=== PATIENT | male | born 1960 | race Caucasian/White ===

== ENCOUNTER → 2023-05-16 15:37 | Outpatient (REF) | payer BC, SELFPAY | LOC: RAD 15:37 | PROVIDERS: ATTENDING PHYSICIAN Surgery; FAMILY PHYSICIAN Internal Medicine | DX: K43.2 Incisional hernia without obstruction or gangrene (principal) | CPT/HCPCS: 74177; Q9967 ==

== ENCOUNTER 2023-05-30 06:26 | Day surgery (SDC) | payer BC, SELFPAY ==
[2023-05-30 13:10] VITALS: BP 145/100
[2023-05-30 13:13] VITALS: BMI 26.8
[2023-05-30 13:14] VITALS: BMI 26.8
[2023-05-30 15:11] VITALS: BP 148/88
[2023-05-30 15:15] VITALS: BP 133/97
[2023-05-30 15:30] VITALS: BP 145/101
[2023-05-30 15:41] VITALS: BP 145/96
== END 2023-05-30 16:05 | disposition home or self-care (01) ==
LOC: SDS 06:26
PROVIDERS: ATTENDING PHYSICIAN Internal Medicine Gastroenterology
DX: K56.699 Other intestinal obstruction unspecified as to partial versus complete obstruction (principal); K57.30 Diverticulosis of large intestine without perforation or abscess without bleeding; K64.9 Unspecified hemorrhoids; K59.00 Constipation, unspecified
CPT/HCPCS: 45340

== ENCOUNTER 2023-06-11 06:18 | Day surgery (SDC) | payer BC, SELFPAY ==
--- NOTE | 2023-05-27 12:22 | CM ---
Patient is scheduled for a Robotic incisional hernia repair on 06/11/23. Spoke with patient prior to surgery via telephone to complete case management assessment and assess for discharge planning needs. Patient reports that he lives with his in
a split level home. There are three steps to enter. Once inside he has a first floor set up with two steps into the bedroom. He currently functions independently. He does not use any DME. He has had [facility] services through [facility]. He has prescription
drug coverage and uses [facility] in [place].
PCP is Morgan Ying
Discussed discharge plans. Patient plans to return home at discharge. He states that he will have support from his when he goes home. He has no discharge planning concerns at this time. He does not identify any discharge planning needs but
states that if he needs VN services he selects [facility]N.
[2023-06-06 09:15] LABS: Hemoglobin 16.2 g/dL (13.0-18.0); Mean Corp Hgb Conc. 33.8 g/dL (33.0-37.0); Mean Corpuscular Hgb 30.5 pg (27.0-31.0); Mean Corpuscular Volume 90.2 fL (80.0-94.0); Mean Platelet Volume 10.8 fL (7.4-10.4); Platelet Count 252 10^3/uL (130-400); Red Blood Cell Count 5.32 10^6/uL (4.70-6.10); Red Cell Dist. Width 13.2 % (11.5-14.5); White Blood Cell Count 7.2 10^3/uL (4.8-10.8)
[2023-06-06 09:48] VITALS: BMI 27.2
[2023-06-06 09:54] LABS: Blood Urea Nitrogen 23 mg/dl (9-20); Carbon Dioxide 27 mmol/L (22-30); Chloride 103 mmol/L (98-107); Estimated Creatinine Clearance 69 ml/min; Glucose 108 mg/dl (70-99); Potassium 4.8 mmol/L (3.5-5.1); Sodium 140 mmol/L (135-145); eGFR > 60.00
--- NOTE | 2023-06-06 16:21 | PTCARENOTE ---
Abnormal EKG ok if stable per Dr Shin.
[2023-06-11] VITALS (12 sets, daily range): BP systolic 115–153; BP diastolic 72–96; BMI 27.2
[2023-06-11] MEDS: TYLENOL 1000 MG PO (11:44)
[2023-06-11] MEDS: NORMOSOL-R 1000 IV (11:50)
[2023-06-11] MEDS: SUBLIMAZE 50 MCG IV ×2 (14:58→15:12)
[2023-06-11] MEDS: ZOFRAN 4 MG IV (15:20)
== END 2023-06-11 17:25 | disposition home or self-care (01) ==
LOC: SDS 06:18
PROVIDERS: ATTENDING PHYSICIAN Surgery; FAMILY PHYSICIAN Internal Medicine; OTHER PHYSICIAN Surgery
DX: K43.2 Incisional hernia without obstruction or gangrene (principal)
CPT/HCPCS: 49593; 36415; 80048; 85027; 93005; C1781

== ENCOUNTER 2023-07-29 20:03 | Inpatient (IN) | payer BC, SELFPAY ==
[2023-07-29 16:55] VITALS: BP 172/111
[2023-07-29 17:11] VITALS: BP 114/72
--- NOTE | 2023-07-29 17:19 | ED.GENMED ---
History of Present Illness
General
Chief Complaint: Abdominal Pain
Time Seen by Provider: 07/29/23 17:18
Travel History
Have you had any contact with someone who has COVID-19?: No
Do you have any symptoms of coronavirus? Fever > 100 degrees, chills, cough, shortness of breath, sore throat, loss of taste or smell, muscle aches, or headache?: No
History of Present Illness
History of Present Illness:
HPI: The patient has a history of sigmoidectomy with proximal diverting loop ileostomy for a large bowel resection in [place]. in June 2022, the patient had loop ileostomy takedown with partial small bowel resection. He comes in because of
abdominal cramping and he feels that there is something wrong with his intestines as he has had similar kind of pain in the past when he had an obstruction.
EXAM:
GENERAL: Well appearing in mild distress
HEENT: Moist oral mucosa
CARDIOVASCULAR: No murmurs, borderline tachycardia heart rate, regular rhythm, No chest wall tenderness
PULMONARY: No respiratory distress, breath sounds are clear and equal
ABDOMEN: Soft with borderline peritoneal signs, mild to moderate diffuse tenderness
NEUROLOGIC: Excellent strength all extremities, no coordination deficits
PSYCHIATRIC: Appropriate mental status, normal insight and judgement, appears somewhat anxious
EXTREMITIES: Nontender, no edema, moves all extremities equally
SKIN: No rash, no lesions
TIME OF INITIAL ENCOUNTER: 5:30 PM
NUMBER AND COMPLEXITY OF PROBLEMS ADDRESSED AT THE ENCOUNTER
� Chronic conditions affecting care: Has had ileostomy, bowel obstruction, bowel resection
� Acute Exacerbation and/or Progression of Chronic Illness: This is an acute problem
� Differential Diagnosis includes: Bowel obstruction, anastomosis complication, viral syndrome, mesenteric adenitis, epiploic appendagitis,
AMOUNT AND/OR COMPLEXITY OF DATA TO BE REVIEWED AND ANALYZED
� I performed an independent evaluation of and my interpretation is:
EKG:
CT: I personally viewed CT imaging of the abdomen pelvis with rectal contrast and I also reviewed the notes from radiology
X-rays:
Laboratory Studies: White count is 11.0, hemoglobin is 15.8, lactic is 2.2., 1+ ketones noted
Other:
� Review of other/old records: I reviewed records, the patient had robotic ventral incisional hernia repair with mesh by Dr. Feng in May 2023
� Clinical information was obtained by an independent historian: I spoke to the daughter at bedside
� Prescriptions/Medications Considered but not given:
� Further testing considered but not performed:
RISK OF COMPLICATIONS AND/OR MORBIDITY OR MORTALITY OF PATIENT MANAGEMENT
� Social determinants of health affecting care:
� Discussion with other providers: Discussed with Dr. Liu and I also discussed with Dr. Yi who is planning to take the OR; hospitalist Dr. Gastelum for admission
� Escalation of care including admission/observation vs risk of discharge considered: The patient's white count is borderline elevated 11.0, lactic is 2.2, ketonuria noted on urinalysis. Based on the abnormal CT, I have ordered
additional fluids and Zosyn. Dr. Yi planning OR later tonight with hospitalist admission.
Past History
Past History
ED Past Medical History: Other (gouy)
Social History
Alcohol: None
Personal:
Living: with family
Employment: Employed
Phy Exam
Physical Exam
Physical Exam:
See HPI
Course
Orders/Labs/Results
Orders:
Orders
07/29/23 17:19
0.9% Sodium Chloride 1000 ml [Nss] 1,000 ml IV BOLUS
07/29/23 17:23
Complete Blood Count/With Diff Urgent
Comprehensive Metabolic Panel Urgent
Lactic Acid Q4H
Comment: CANCEL 2nd LACTIC ACID IF 1st LACTIC ACID IS LESS THAN 2
Blood Culture Q30M
KISHA Source: Blood/Venous
Specimen Description:
Blood Culture Q30M
KISHA Source: Blood/Venous
Specimen Description:
07/29/23 17:45
HYDROmorphone [Dilaudid] 0.5 mg IV NOW STA
07/29/23 17:59
CT Abd/pelvis W Iv Cont Urgent
Reason For Exam: abd pain rectal contrast per Kassidy
07/29/23 18:44
Piperacillin/Tazo 3.375 Gram [Zosyn] 3.375 gram in 50 ml IV NOW
07/29/23 18:58
Urinalysis Reflex To Culture Urgent
Date Specimen was Collected: 07/29/23
Time Specimen was Collected: 18:54
07/29/23 21:30
Lactic Acid Q4H
Comment: CANCEL 2nd LACTIC ACID IF 1st LACTIC ACID IS LESS THAN 2
Abnormal Lab Results
07/29/23 07/29/23
17:23 18:58
WBC 11.0 H 10^3/uL
(4.8-10.8)
Absolute Neuts (auto) 9.1 H 10^3/uL
(1.4-6.5)
Absolute Lymphs (auto) 1.1 L 10^3/uL
(1.2-3.4)
Neutrophils % 82.9 H %
(42.2-75.2)
Lymphocytes % 10.3 L %
(20.5-51.1)
Glucose 110 H mg/dl
(70-99)
Lactic Acid 2.2 H mmol/L
(0.7-2.0)
Urine Ketones 1+ A
(Negative)
07/29/23 17:23
07/29/23 17:23
Vital Signs
Initial and Last Documented VS:
Initial Vital Signs
Temp Pulse Resp BP Pulse Ox
98.7 F 101 18 172/111 98
07/29/23 16:55 07/29/23 16:55 07/29/23 16:55 07/29/23 16:55 07/29/23 16:55
Last Documented Vital Signs
Temp Pulse Resp BP Pulse Ox
98.7 F 105 22 152/100 98
07/29/23 16:55 07/29/23 19:15 07/29/23 19:15 07/29/23 19:00 07/29/23 16:55
*Critical Care Note
Total Time (30-74mins, 75-104mins- exclusive of procedures): Not Applicable
ED Attending Note
-
Portions of this chart may have been created with voice recognition software.� Occasional wrong word or��sound alike� substitutions may have occurred due to the inherent limitations of voice recognition software.
Discharge Plan
Departure
Patient Disposition: Admit
Date of Disposition: 07/29/23
Time of Disposition: 18:47
Presentation/result/management discussed w/ accepting MD/DO: Hospitalist
Discharge Problem:
Anastomotic leak of intestine
Prescriptions:
No Action
ibuprofen 200 mg tablet
400 mg PO Q6HPRN PRN (Reason: mild pain)
Referrals:
UNKNOWN - PT DOES,NOT KNOW [Unknown Provider] -
Interventions
Interventions:
*Risk Screen - Suicide Last Done: 07/29/23 16:55
*General Assessment Last Done: 07/29/23 16:55
*Neglect/Abuse Screening Last Done: 07/29/23 16:55
ED- Fall Risk Assessment Last Done: 07/29/23 17:28
*ED COVID-19 Vaccine History Last Done: 07/29/23 17:03
QO-Ualfdf-Ptklutmlpo Assessment Last Done: 07/29/23 17:26
Discharge Date and Time
Print Language: IRISH
[2023-07-29] MEDS: NSS 1000 IV ×2 (17:25→19:40)
[2023-07-29 17:26] VITALS: BMI 28.6
[2023-07-29 17:30] LABS: % Basophils 0.3 % (0-2); % Eosinophils 0.5 % (0-6); % Immature Granulocytes 0.4 % (0-0.5); % Lymphocytes 10.3 % (20.5-51.1); % Monocytes 5.6 % (1.7-9.3); % Neutrophils 82.9 % (42.2-75.2); Absolute Eosinophils 0.1 10^3/uL (0-0.7); Absolute Lymphocytes 1.1 10^3/uL (1.2-3.4); Absolute Monocytes 0.6 10^3/uL (0.1-0.6); Absolute Neutrophils 9.1 10^3/uL (1.4-6.5); Hematocrit 44.7 % (39.0-52.0); Hemoglobin 15.8 g/dL (13.0-18.0); Mean Corp Hgb Conc. 35.3 g/dL (33.0-37.0); Mean Corpuscular Hgb 30.5 pg (27.0-31.0); Mean Corpuscular Volume 86.3 fL (80.0-94.0); Mean Platelet Volume 10.3 fL (7.4-10.4); Nucleated Red Blood Cells % 0 % (-); Platelet Count 242 10^3/uL (130-400); Red Blood Cell Count 5.18 10^6/uL (4.70-6.10); Red Cell Dist. Width 12.9 % (11.5-14.5)
[2023-07-29 17:42] LABS: ALT (SGPT) 48 U/L (0-50); AST (SGOT) 34 U/L (17-59); Albumin 4.7 g/dl (3.5-5.0); Alkaline Phosphatase 72 U/L (38-126); Blood Urea Nitrogen 20 mg/dl (9-20); Calcium 9.9 mg/dl (8.4-10.2); Carbon Dioxide 26 mmol/L (22-30); Chloride 101 mmol/L (98-107); Estimated Creatinine Clearance 76 ml/min; Glucose 110 mg/dl (70-99); Potassium 3.7 mmol/L (3.5-5.1); Sodium 139 mmol/L (135-145); eGFR > 60.00
[2023-07-29 17:43] LABS: Lactic Acid 2.2 mmol/L (0.7-2.0)
[2023-07-29] MEDS: DILAUDID 0.5 MG IV (17:49)
[2023-07-29 18:40] VITALS: BP 181/96
[2023-07-29] MEDS: ZOSYN 50 IV (18:46)
[2023-07-29 19:00] VITALS: BP 152/100
--- NOTE | 2023-07-29 19:11 | HPS.HSE ---
Addendum entered and electronically signed by Mally Gastelum MD 07/29/23 19:47:
see my update note for addendum
Original Note:
Family Physician
-
Family Physician: Morgan Ying
Chief Complaint
-
abdominal pain
History of Present Illness
63-year-old with no significant past medical history presented to us with generalized abdominal pain since this morning. Back in 2021 patient had a same abdominal pain. Patient underwent large bowel resection with ileostomy which was reversed in
December 2022. Denied nausea vomiting diarrhea. He gets constipated at times. He moved his bowel movement today. Patient denied headache. He complained of dizziness, denies syncopal episode. Patient denied fever, chills, chest pain, short of
breath. Patient denied dysuria, hematuria.
CT obtained with anastomotic leak in the sigmoid colon. Plan for surgery tonight admitting for further management.
Medical History
Past Medical History
Past Medical History: Reports None
Past Surgical History: Reports Other
Additional Past Surgical History:
Large bowel resection with loop ileostomy
-Reversal of ileostomy
Hernia surgery
Social History
Tobacco: Non-smoker
Alcohol: None
Drug: None
Personal:
Living: With Family
Family History
Family History: Not pertinent
Allergies / Home Medications
Allergies reflects when Allergies were last updated in [facility].
Home Medications with original date entered in [facility]
Allergy/Medication List:
Allergies
Allergy/AdvReac Type Severity Reaction Status Date / Time
No Known Allergies Allergy Verified 07/29/23 17:00
Home Medications
ibuprofen 200 mg tablet 400 mg PO Q6HPRN PRN mild pain 07/29/23
Review of Systems
-
Constitutional: Reports No Symptoms
EENT: Reports No Symptoms
Respiratory: Reports No Symptoms
Cardiac: Reports No Symptoms
Abdomen/GI: Reports No Symptoms and Abdominal Pain
: Reports No Symptoms
Musculoskeletal: Reports No Symptoms
Skin: Reports No Symptoms
Neurological: Reports No Symptoms
Endocrine: Reports No Symptoms
Hematologic/Lymphatic: Reports No Symptoms
Psych: Reports No Symptoms
Physical Exam
Vital Signs
Vital Signs
Temp Pulse Resp BP Pulse Ox
98.7 F 99 32 152/100 98
07/29/23 16:55 07/29/23 19:00 07/29/23 19:00 07/29/23 19:00 07/29/23 16:55
Physical Exam
General: Well Developed, Well Nourished and No Apparent Distress
HEENT: NormoCephalic, Moist mucous membranes and Atraumatic
Respiratory: Clear
Cardiac: S1/S2 and Regular Rhythm; No Murmur or Rub
GI: Soft, Non Tender, Non Distended, Normal Bowel Sounds and Tender; No Organomegaly
Rectal: Deferred by Provider
Musculoskeletal: No Clubbing, No Cyanosis and No Edema
Skin: No Rash
Neuro: AO x 3 and Nonfocal/grossly intact
Psych: Calm
Laboratory Results
-
07/29/23 17:23
07/29/23 17:23
Laboratory Results
Lactic Acid 2.2 mmol/L (0.7-2.0) H 07/29/23 17:23
Total Bilirubin 1.0 mg/dl (0.2-1.3) 07/29/23 17:23
AST 34 U/L (17-59) 07/29/23 17:23
ALT 48 U/L (0-50) 07/29/23 17:23
Alkaline Phosphatase 72 U/L (38-126) 07/29/23 17:23
Data Reviewed
-
CT Scan: Report Reviewed by me
Lab Data: Labs Reviewed by me
Impression/Plan
-
#abdominal cramping likely from anastomotic leak in the sigmoid colon/reactive enteritis/ileus
#hxt of loop ileostomy with large bowel resection
#hxt of ileostomy reversal
-Maintain n.p.o.
-Plan for OR tonight
-Surgery following
-Fluids continued for hydration
#hxt of recent hernia repair
# DVT prophylaxis
-SCD
# CODE STATUS
-Full code
[2023-07-29 19:13] LABS: Urine Albumin Negative (Neg - Trace); Urine Bilirubin Negative (Negative); Urine Character Clear (Clear); Urine Color Yellow; Urine Glucose Negative (Negative); Urine Ketone 1+ (Negative); Urine Leukocyte Negative (Negative); Urine Nitrite Negative (Negative); Urine Occult Blood Negative (Negative); Urine Urobilinogen Negative (Neg - 1+)
--- NOTE | 2023-07-29 19:47 | W.PN.UPDATE ---
Update Note
Progress Note Update
I saw and examined the patient.
The BAG WORKER Anselmo's note was reviewed and I agree with the note.
Comment: 63 y/o M presenting to ER with abdominal pain, generalized and intense. Onset this morning. Pain is progressive.Denies nausea/vomiting, chest or sob. No other complaints. He had similar pain in 2021 and required a large bowel resection with
ostomy (since reversed in Dec 2022).
Urgent CT in ER showing anastomotic leak in the sigmoid colon; ER and I spoke to Dr. Yi and plan is for OR urgently.
Plan: NPO, IVF, pain control, anti-emetics. Mild lactic acidosis, repeat pending. IV Zosyn to continue. Follow cultures. Colorectal consulted for urgent surgery tonight; with probable ICU admission to follow.
Physical Exam
General: Well Developed, Well Nourished and No Apparent Distress
HEENT: Normocephalic, Moist mucous membranes and Atraumatic
Respiratory: Clear
Cardiac: S1/S2 and tachycardia; No Murmur or Rub
GI: Rigid, tender diffusely to mild palpation. No obvious masses.
Rectal: Deferred by Provider
Musculoskeletal: No Clubbing, No Cyanosis and No Edema
Skin: No Rash
Neuro: AO x 3 and Nonfocal/grossly intact
Psych: Calm
[2023-07-29] MEDS: DILAUDID 1 MG IV (19:58)
[2023-07-29 20:00] VITALS: BP 152/99
--- NOTE | 2023-07-29 20:28 | CON.MD ---
Consultation - Medical
-
Full consult to be dictated.
History, vitals, labs, imaging reviewed. Patient seen and examined.
63-year-old male well-known to me with apparent anastomotic leak of old sigmoid anastomosis with known stricture with resultant signs of sepsis and peritonitis. This is confirmed on CT with rectal contrast performed today in the ER which reveals
extravasation of rectal contrast at the old anastomosis as well as free air. He is mildly tachycardic and has mild leukocytosis with a left shift. Lactate is mildly elevated at 2.2. Historically, he underwent a urgent sigmoidectomy with
anastomosis and proximal diverting loop ileostomy in [place] in 2021 for sigmoid diverticular stricture. He saw me locally for consideration of ileostomy takedown. 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
by Dr. Uli Randall of GI followed by ileostomy reversal by me in December 2022. He has had recurrent known stricture which was dilated again by Dr. Randall 2 months ago on 05/30/2023. Even more recently on 06/11/2023 he underwent a right-sided incisional
hernia repair with mesh by Dr. Feng of general surgery. I discussed the situation with the patient and his at the bedside. I recommended exploratory laparotomy with likely resection of the old anastomosis and palpable colostomy creation.
Details of operation planned as well as risk and benefits discussed. Risk touched on included but not limited to bleeding, infection, anastomotic leak) if created), rectal stump dehiscence, ureteral injury, bowel or solid organ injury, mesh
infection, and anesthetic risk. The patient understood and agreed to proceed.
--- NOTE | 2023-07-29 23:54 | W.IMMPOSTOP ---
Surgical Immed Post Op Note
-
Primary Surgeon: Louisa Yi MD
Assisting Surgeon: none
Pre-op Diagnosis: anastomotic leak
Post-op Diagnosis: same
Procedure Performed: 1) exploratory laparotomy 2) partial colectomy (resection of old sigmoid anastomosis) 3) colostomy
Anesthesia Type: general plus TAP block
Specimen / Cultures: 1) abdominal fluid cultures 2) portion of colon to include old sigmoid anastomosis
Estimated Blood Loss: 100 cc
Complications: no immediate
Operative Findings: 1) anastomotic leak of old sigmoid anastomosis at upper pelvis with associated purulent contamination and exudate 2) secondary involvement of tongue of omentum and loop of small bowel 3) abdominal wall mesh partially divided on
entry
#19 Esa in pelvis.
NGT in stomach--confirmed in OR.
Guerrero in bladder.
Sending to ICU for close monitoring.
Patient's updated in waiting area.
[2023-07-30] VITALS (19 sets, daily range): BP systolic 102–137; BP diastolic 67–90; PULSE 68; O2SAT 94; BMI 28.1; BMI 28.0; BMI 27.9
[2023-07-30] MEDS: ZOSYN 50 IV ×4 (00:40→17:27)
[2023-07-30] MEDS: TORADOL 15 MG IV ×4 (00:41→18:17)
[2023-07-30] MEDS: NORMOSOL-R 1000 IV ×2 (00:41→08:00)
[2023-07-30 00:57] LABS: Hematocrit 41.3 % (39.0-52.0); Hemoglobin 14.7 g/dL (13.0-18.0); Mean Corp Hgb Conc. 35.6 g/dL (33.0-37.0); Mean Corpuscular Hgb 30.8 pg (27.0-31.0); Mean Corpuscular Volume 86.6 fL (80.0-94.0); Mean Platelet Volume 10.1 fL (7.4-10.4); Nucleated Red Blood Cells % 0 % (-); Platelet Count 195 10^3/uL (130-400); Red Blood Cell Count 4.77 10^6/uL (4.70-6.10); White Blood Cell Count 8.9 10^3/uL (4.8-10.8)
[2023-07-30 02:57] LABS: Blood Urea Nitrogen 17 mg/dl (9-20); Calcium 7.7 mg/dl (8.4-10.2); Carbon Dioxide 17 mmol/L (22-30); Chloride 107 mmol/L (98-107); Estimated Creatinine Clearance 83 ml/min; Glucose 144 mg/dl (70-99); Magnesium 1.5 mg/dl (1.6-2.3); Potassium 4.3 mmol/L (3.5-5.1); Sodium 136 mmol/L (135-145); eGFR > 60.00
[2023-07-30 03:01] LABS: Lactic Acid 2.8 mmol/L (0.7-2.0)
[2023-07-30] MEDS: OFIRMEV 100 IV ×4 (03:48→20:43)
[2023-07-30 04:04] LABS: Absolute Neutrophils -Man Diff 7.2 10^3/uL (1.4-6.5); Atypical Lymphocytes 2 %; Band Neutrophils 41 % (0-3); Lymphocytes 8 % (20-51); Metamyelocytes 3 % (-); Monocytes 6 % (2-9); Segmented Neutrophils 40 % (42-75)
[2023-07-30 04:05] LABS: Normal RBC Morphology Yes; Platelets Checked Yes
[2023-07-30 04:22] LABS: Total Cells Counted 100
[2023-07-30] MEDS: MAGNESIUM SULFATE 50 IV (05:13)
[2023-07-30 05:18] LABS: APTT 29.5 Sec (23.4-35.0); INR 1.25; PT 15.6 Sec (11.4-14.6)
[2023-07-30 05:21] LABS: Hematocrit 40.6 % (39.0-52.0); Hemoglobin 14.4 g/dL (13.0-18.0); Mean Corp Hgb Conc. 35.5 g/dL (33.0-37.0); Mean Corpuscular Hgb 30.8 pg (27.0-31.0); Mean Corpuscular Volume 86.9 fL (80.0-94.0); Mean Platelet Volume 10.4 fL (7.4-10.4); Platelet Count 201 10^3/uL (130-400); Red Blood Cell Count 4.67 10^6/uL (4.70-6.10); White Blood Cell Count 10.8 10^3/uL (4.8-10.8)
[2023-07-30 05:27] LABS: Blood Urea Nitrogen 17 mg/dl (9-20); Calcium 7.7 mg/dl (8.4-10.2); Carbon Dioxide 19 mmol/L (22-30); Chloride 107 mmol/L (98-107); Estimated Creatinine Clearance 83 ml/min; Glucose 159 mg/dl (70-99); Magnesium 1.6 mg/dl (1.6-2.3); Potassium 4.2 mmol/L (3.5-5.1); Sodium 135 mmol/L (135-145); eGFR > 60.00
[2023-07-30 05:28] LABS: Lactic Acid 2.4 mmol/L (0.7-2.0)
--- NOTE | 2023-07-30 07:40 | CON.INTV ---
Consultation
Consultation Request
Date/Time Consultation Requested: 07-30-23
Date/Time Consultation Performed: 07-30-23
Requesting Provider: Hospitalist Ori
Performing Provider: Dr Srivastava
Reason for Consultation: acute abdomen
Medical History
-
Chief Complaint: abd pain
History of Present Illness:
Mr Neo Mandel is a 63/M adm 07-28 with acute abd pain.
Known h/o previous sigmoid diverticular stricture requiring surgery in 2021 and Dec 2022.
Known to ZOË Rubio. Imaging studies showed anastomotic leak of old sigmoid anastomosis, taken to OR upon adm, received expl lap, partial colectomy with colostomy.
Seen at ICU, has remained hemodyn and resp cottrell stable since adm, reports mild postop incisional pain
Past Medical History
Past Medical History: Other (see A&P for PMH/PSH)
Social History
Tobacco: Non-smoker
Alcohol: None
Drug: None
Personal:
Living: With Family
Employment: Employed
Family History
Family History: Reviewed & Not Pertinent
Allergies / Home Medications
Allergies
Allergy/AdvReac Type Severity Reaction Status Date / Time
No Known Allergies Allergy Verified 07/29/23 17:00
Home Medications
�Medication �Instructions �Recorded �Confirmed �Last Taken �Type
ibuprofen 200 mg tablet 400 mg PO Q6HPRN PRN mild pain 07/29/23 07/29/23 Unknown History
Review of Systems
-
History Source: Patient
All other systems: Negative unless noted
Constitutional: Fatigue
Abdomen/GI: Abdominal Pain (incisional)
Vitals / Labs / Diagnostic Testing
Vital Signs
Temp Pulse Resp BP Pulse Ox
98 F 65 14 115/84 97
07/30/23 07:29 07/30/23 06:30 07/30/23 06:30 07/30/23 06:00 07/30/23 07:34
Lab Data
07/30/23 04:57
07/30/23 04:57
Laboratory Results
07/30/23
04:57
PT 15.6 H
INR 1.25
APTT 29.5
Diagnostic Testing:
Physical Exam
-
HEENT: Normocephalic and Moist Mucous Membranes
Cardiovascular: Regular Rhythm, Murmur (n), Peripheral Edema and JVD (n)
Respiratory: Clear and Non-Labored Respirations
GI: Soft, Non Distended and Tender (mild incisional pain)
Neurology: Awake, AO x 3 and No Motor Deficits
Skin: Warm
General: Comfortable
Assessment
-
Assessment:
Mr Neo Mandel is a 63/M adm 07-28 with acute abd pain. Known h/o previous sigmoid diverticular stricture requiring surgery in 2021 and Dec 2022. Know to [place] [facility]. Imaging studies showed anastomotic leak of old sigmoid anastomosis, taken to OR
upon adm, received expl lap, partial colectomy with colostomy. Seen at ICU, has remained hemodyn and resp cottrell stable since adm, reports mild postop incisional pain
Impression:
Acute abdomen: peritonitis
Anastomotic leak of old sigmoid anastomosis at upper pelvis with associated purulent contamination and exudate
Secondary involvement of tongue of omentum and loop of small bowel
S/p exploratory laparotomy, partial colectomy (resection of old sigmoid anastomosis), colostomy
Conditions MANAGED CARE NURSE:
Sigmoid diverticular stricture: s/p sigmoidectomy with anastomosis and proximal diverting loop ileostomy in [place] in 2021. 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
preoperative dilation by Analilia OJEDA, followed by ileostomy reversal by Dr Yi in December 2022. He has had recurrent known stricture which was dilated again by Dr. Randall in 05/30/2023. On 06/11/2023 he underwent a right-sided incisional hernia repair
with mesh by Dr. Feng
Nonsmoker
Plan:
Adm to ICU after abd surgery: acute abd, peritonitis from anastomotic leak from old sigmoid anastomosis
Did well during after surgery
Keep asp precs
O2 protocol as needed
Not on outpatient BDs or O2
IS
Continue empiric zosyn
Follow blood and intraabd sampling cxs
IVFs
NPO for now
Pain mgmt
GI proph
DVT proph
Stable for transfer to [facility]
No critical care time charged today
Reconsult prn
D/w Mr Mandel, all questions answered, I wished him and his family all the best
D/w MDT
[2023-07-30] MEDS: PROTONIX IV 40 MG IV (08:01)
[2023-07-30] MEDS: NSS (PRESERVATIVE FREE) 10 ML IV (08:01)
--- NOTE | 2023-07-30 08:14 | W.PN.ANS.POP ---
Anesthesia Post Operative
- Anesthesia Post Op Note
Vital Signs Stable-See Nursing Note: Yes
Airway Patent: Yes
Adequate Pain Control: Yes
Change in Mental Status: No
Current Postoperative Nausea & Vomiting: No
Anesthesia Complications: No
General Anesthetic Recall: No
Unplanned Admission: No
Post Op Hydration Adequate: Yes
--- NOTE | 2023-07-30 08:47 | W.PN.HOSP.TC ---
Today's Communication/Plan
-
see plan
Assessment / Plan
Assessment / Plan
63 y/o M with hx large bowel resection with ostomy (since reversed 01/06) presenting to ER with generalized intense abdominal pain with CT showing development of anastomotic leak in sigmoid colon s/p emergent OR.
CT A/P
IMPRESSION:
1. Interval development of anastomotic leak in the sigmoid colon with presence of significant amounts of extraluminal/intraperitoneal gas and contrast in the pelvis. Reactive enteritis/ileus of adjacent small bowel loops.
Operative Findings: 1) anastomotic leak of old sigmoid anastomosis at upper pelvis with associated purulent contamination and exudate 2) secondary involvement of tongue of omentum and loop of small bowel 3) abdominal wall mesh partially divided on
entry
Anastomotic Leak of Sigmoid Anastomosis with associated purulent contamination
-s/p emergent OR 07/28
-NPO
-IVF
-IV Zosyn
-NGT
-pain control
-can likely transfer out of ICU today
DVT PPx SCD
FULL CODE
Anticipated Discharge: > 48 hours
Subjective/Interval History
-
Date of Service: July 30, 2023
feeling ok this morning
pain controlled
emotional from last night's events
Objective Data
-
Labs:
Laboratory Results
07/30/23 07/30/23
00:51 04:57
WBC 8.9 10.8
Hgb 14.7 14.4
Hct 41.3 40.6
Plt Count 195 201
PT 15.6 H
INR 1.25
APTT 29.5
Sodium 136 135
Potassium 4.3 4.2
Chloride 107 107
Carbon Dioxide 17 L 19 L
BUN 17 17
Creatinine 1.0 1.0
Glucose 144 H 159 H
Calcium 7.7 L D 7.7 L
Vital Signs:
Vital Signs
Temp Pulse Resp BP Pulse Ox
98 F 65 14 115/84 97
07/30/23 07:29 07/30/23 06:30 07/30/23 06:30 07/30/23 06:00 07/30/23 07:34
I&O
07/29/23 07/30/23 07/31/23
06:59 06:59 06:59
Intake Total 650 / 650
Output Total 920 / 920
Balance -270 / -270
Review of Systems
-
History Source: Patient
All other systems: Reviewed and negative
Physical Exam
-
General: No Apparent Distress
HEENT: PERRLA
Respiratory: Clear to Auscultation; Negative Wheezes
Cardiac: Regular Rhythm and S1/S2
GI: Other (ostomy present; mid-line incision c/d/i; + TERESA drain )
Skin: Warm and Dry; Negative Rash
Neuro: AO x 3
Psych: Calm
Data Reviewed
-
Diagnostic Radiology: Report Reviewed by me
Labs: Labs Reviewed by me
--- NOTE | 2023-07-30 09:04 | PTCARENOTE ---
PT received in bed, drowsy but easily arousable, AAOx3, NATARAJAN's, NSR, no edema +pulses, 5L O2 98%, B/L BS CTA, IS pulls 1500, midline incision with Aquacel placed, small amount of shadowing noted, right lower quad with TERESA drain 80 ml Serosang
drainage, left lower quad colostomy, stoma red and budded, no drainage noted at this time, PT denies abdominal pain at this time, right naris [place] sump to LIS, placement verified, flushed with 30 ml, draining brownish-red,absent BS, Guerrero care
preformed, draining clear yellow urine, Right AC INt and Left AC INT flushed and patent, ice chips ok as per surgery
--- NOTE | 2023-07-30 09:54 | W.PN.CRS1 ---
Today's Communication / Plan
-
continue ngt
fur liner
OOB
lovenox
zosyn
Assessment/Plan
-
POD#1 1) exploratory laparotomy 2) partial colectomy (resection of old sigmoid anastomosis) 3) colostomy
1. Vitals and labs normal.
2. OOB with PT.
3. Continue NGT, await bowel function. Continue IVFs while NPO.
4. EDGAR drain to remain in place prior to discharge.
5. Continue torres until AM.
6. OR pathology pending.
7. Pain medications: Tylenol/Toradol standing, Dilaudid PRN.
8. TEDS/SCDS in place, add Lovenox for DVT prophylaxis.
9. Wound RN for colostomy teaching.
10. Continue IV Zosyn. Abdominal cultures pending.
11. Okay to downgrade to med surg.
Subjective Data
Procedure
07/29/2023- 1) exploratory laparotomy 2) partial colectomy (resection of old sigmoid anastomosis) 3) colostomy
Subjective Data
Date of Service: July 30, 2023
Patient states he has some pain but it is controlled. He denies nausea or vomiting. He has no bowel function yet.
Objective Data
-
Vital Signs
Temp Pulse Resp BP Pulse Ox
98 F 65 14 115/84 98
07/30/23 07:29 07/30/23 06:30 07/30/23 06:30 07/30/23 06:00 07/30/23 08:00
Intake & Output
07/29/23 07/30/23 07/31/23
06:59 06:59 06:59
Intake Total 650 / 650
Output Total 920 / 920 80 / 80
Balance -270 / -270 -80 / -80
Intake:
IV fluids (Total) 500 / 500
Normosol-R 1,000 ml @ 100 mls/ 500 / 500
hr IV .Q10H [facility] Rx#:[id number]
IV piggybacks 150 / 150
Amount instilled into GI Tube ( 0 / 0
Total)
[place] Sump 0 / 0
Output:
Drain Output (Total) 270 / 270 80 / 80
Right Lower Saud-Dash 270 / 270 80 / 80
Urine, Torres 650 / 650
Lab Results
07/30/23 04:57
07/30/23 04:57
Physical Exam
-
General: No Acute Distress and AOx3
Abdomen: Soft, Non Distended, Tender (around incision) and Other (colostomy warm and pink with no output, edgar drain bloody)
Skin: Warm
Wound: Dressing in Place
--- NOTE | 2023-07-30 11:20 | CM ---
Patient seen at bedside with patient also present. Patient with ng tube and O2. Patient stated that he lives with in one story home. Patient PCP is Dr. Wolf and he uses [facility] in [place] [address]. Patient has no DME and has a first
floor set up if needed. Patient declined Advance directive information at this time. Patient plan is for discharge home with no needs. indicated that most likely he would need VN for wound care and they would consider needs closer to discharge
needs.
Plan; home with no needs vs home with VN.
--- NOTE | 2023-07-30 11:30 | WOUNDNOTE ---
[facility] RN note: Patient s/p colostomy. Stoma pink and oval shaped. Ostomy appliance intact. Patient and have experience with appliance changes since patient had a recent ileostomy. Reviewed how to open and close pouch, cut out wafer and snap on
pouch. Ostomy supplies (Henning wafer # [id number], Linwood seals and Henning pouch # [id number]) given and colostomy teaching folder. and patient gave verbal permission to order a [employer] ostomy secure starter kit. signed [employer] starter kit
consent fax form.
--- NOTE | 2023-07-30 12:44 | PTCARENOTE ---
Report given to RN 2 Chris, PT and belongings were packed and transferred with family to room 2123, all questions and concerns answered, bed in lowest position, call rojas within reach, tech and RN at bedside
[2023-07-30] MEDS: DILAUDID 0.25 MG IV (16:15)
[2023-07-30] MEDS: FLUSH (NSS) 2 FLUSH IV (16:16)
[2023-07-30] MEDS: LOVENOX 40 MG SC (17:27)
--- NOTE | 2023-07-30 18:13 | PTCARENOTE ---
received pt from ICU around 1245 via bed, pt has a new colostomy, torres and Sophia sump connected to low intermittent suction, call rojas within reach. Oriented to room.
[2023-07-30] MEDS: NSS 1000 IV (20:22)
[2023-07-31] MEDS: ZOSYN 50 IV ×4 (00:02→17:32)
[2023-07-31] MEDS: TORADOL 15 MG IV ×5 (00:49→23:50)
[2023-07-31 03:04] VITALS: BP 120/85
[2023-07-31 05:27] LABS: Hematocrit 35.4 % (39.0-52.0); Hemoglobin 12.2 g/dL (13.0-18.0); Mean Corp Hgb Conc. 34.5 g/dL (33.0-37.0); Mean Corpuscular Hgb 30.5 pg (27.0-31.0); Mean Corpuscular Volume 88.5 fL (80.0-94.0); Mean Platelet Volume 11.1 fL (7.4-10.4); Platelet Count 161 10^3/uL (130-400); Red Cell Dist. Width 13.2 % (11.5-14.5); White Blood Cell Count 9.1 10^3/uL (4.8-10.8)
[2023-07-31 05:59] LABS: Blood Urea Nitrogen 27 mg/dl (9-20); Calcium 7.8 mg/dl (8.4-10.2); Carbon Dioxide 23 mmol/L (22-30); Chloride 106 mmol/L (98-107); Estimated Creatinine Clearance 76 ml/min; Glucose 111 mg/dl (70-99); Potassium 4.2 mmol/L (3.5-5.1); Sodium 136 mmol/L (135-145); eGFR > 60.00
[2023-07-31 06:00] VITALS: BMI 27.8
[2023-07-31 07:00] VITALS: BP 143/99
[2023-07-31] MEDS: NSS 1000 IV ×2 (07:34→17:32)
[2023-07-31] MEDS: NSS (PRESERVATIVE FREE) 10 ML IV (09:08)
[2023-07-31] MEDS: PROTONIX IV 40 MG IV (09:09)
--- NOTE | 2023-07-31 10:09 | PN.CDI ---
CDI
- -
CDI:
Physician Documentation Request
Admit Date: 07/29/23 20:03
Dear Doctor Elen,
Please review the following and provide your response in the progress notes.
Clinical Indicators:
- On admission : WBC 11.0, Band neutrophils 41, HR 90-100's, lactic 2.2
- 07/29 PN 'Anastomotic Leak of Sigmoid Anastomosis with associated purulent contamination'
- 07/29 Colorectal 'apparent anastomotic leak...with resultant signs of sepsis and peritonitis'
- Wound culture Gram negative bacilli
Please clarify which of the following most accurately describes the status of the patient's infection:
Sepsis
- Systemic manifestations of infection, with 2 or more SIRS criteria which include:
- Fever >100.4 degrees F or hypothermia < 96.8 degrees F
- Leukocytosis - WBC > 12,000 or leukopenia - WBC < 4,000 or > 10% bands
- Tachycardia > 90 beats per minute
- Tachypnea - RR > 20 breaths per minute or PaCO2 , 32mmHg
Source: Merck Manual 2013
- Indicate the known or suspected organism
- Indicate the known or suspected underlying infection, such as UTI, pneumonia or cellulitis
- Indicate if a suspected bacterial infection of unknown source
- Indicate if associated with an implanted device such as a F/C, PICC line, orthopedic hardware, etc.
Severe Sepsis
- Sepsis with associated acute organ dysfunction, such as renal or respiratory failure
- Documentation should indicate the association between the sepsis and the organ dysfunction
Localized Infection Only, Without Systemic Illness
- indicate the site/source, such as UTI, pneumonia etc.
Other
Use of terms such as suspected, likely, concern for, or probable (associated with a specific diagnosis that is being evaluated, monitored, or treated as if it exists) are acceptable and can be coded in the inpatient setting, when documented at the
time of discharge.
Thank you,
Yady Hyman RN
CDI Specialist
Please use your independent medical judgment in providing your response.
--- NOTE | 2023-07-31 10:14 | W.PN.CRS1 ---
Today's Communication / Plan
-
remove NGT
npo with sips, possibly clears later
Assessment/Plan
-
POD#2 1) exploratory laparotomy 2) partial colectomy (resection of old sigmoid anastomosis) 3) colostomy
1. Vitals and labs normal.
2. OOB with PT.
3. D/C NGT (basically already out). Continue NPO with sips. If tolerates, can advance to clears later today.
4. TERESA drain to remain in place prior to discharge.
5. Torres discontinued, await void.
6. OR pathology pending.
7. Pain medications: Tylenol/Toradol standing, Dilaudid PRN.
8. TEDS/SCDS in place, add Lovenox for DVT prophylaxis.
9. Wound RN for colostomy teaching.
10. Continue IV Zosyn. Abdominal cultures pending.
11. D/C tele.
Subjective Data
Procedure
07/29/2023- 1) exploratory laparotomy 2) partial colectomy (resection of old sigmoid anastomosis) 3) colostomy
Subjective Data
Date of Service: July 31, 2023
Patient staets he believes his NGT is falling out. His pain is controlled. His torres was removed this morning and he urinated a little. He had brief nausea when he got a medication last night. He has no complaints.
Objective Data
-
Vital Signs
Temp Pulse Resp BP Pulse Ox
98.1 F 71 14 143/99 94
07/31/23 07:00 07/31/23 07:00 07/31/23 07:00 07/31/23 07:00 07/31/23 07:00
Intake & Output
07/30/23 07/31/23 08/01/23
06:59 06:59 06:59
Intake Total 650 / 650
Output Total 920 / 920 2045 / 2045
Balance -270 / -270 -2044
Intake:
IV fluids (Total) 500 / 500
Normosol-R 1,000 ml @ 100 mls/ 500 / 500
hr IV .Q10H ASHLEY Rx#:[id number]
IV piggybacks 150 / 150
Amount instilled into GI Tube ( 0 / 0
Total)
[place] Sump 0 / 0
Output:
Drain Output (Total) 270 / 270
Right Lower Saud-Dash 270 / 270
Gastrointestinal tube output ( 75 / 75
Total)
[place] Borg[place] Sump 75 / 75
Urine, Torres 650 / 650 1050 / 1050
Lab Results
07/31/23 04:25
07/31/23 04:26
Physical Exam
-
General: No Acute Distress and AOx3
Abdomen: Soft, Non Distended, Non Tender and Other (colostomy warm and pink with bao in place, flatus in bag)
Skin: Warm and Dry
Wound: Dressing in Place
--- NOTE | 2023-07-31 10:18 | PN.CDI ---
CDI
- -
CDI:
Physician Documentation Request
Admit Date: 07/29/23 20:03
Dear Doctor Elen,
Please review the following and provide your response in the progress notes.
Clinical Indicators:
- 07/29 2 gram Magnesium sulfate given
Laboratory Tests
07/30/23 07/30/23
00:51 04:57
Magnesium 1.5 L 1.6
Please provide a diagnosis for the above lab values that were monitored and treatment rendered:
Hypomagnesemia
Clinically insignificant abnormal lab value
Other
Use of terms such as suspected, likely, concern for, or probable (associated with a specific diagnosis that is being evaluated, monitored, or treated as if it exists) are acceptable and can be coded in the inpatient setting, when documented at the
time of discharge.
Thank you,
Yady Hyman RN
CDI Specialist
Please use your independent medical judgment in providing your response.
--- NOTE | 2023-07-31 10:45 | W.PN.HOSP.TC ---
Addendum entered and electronically signed by Karen Myrick MD 08/01/23 08:19:
sepsis 2/2 anastamotic leak
-antibiotics as below
BEV
-resolved
Hypomagnesemia
-repleted
Original Note:
Today's Communication/Plan
-
see plan
Assessment / Plan
Assessment / Plan
63 y/o M with hx large bowel resection with ostomy (since reversed 01/06) presenting to ER with generalized intense abdominal pain with CT showing development of anastomotic leak in sigmoid colon s/p emergent OR.
CT A/P
IMPRESSION:
1. Interval development of anastomotic leak in the sigmoid colon with presence of significant amounts of extraluminal/intraperitoneal gas and contrast in the pelvis. Reactive enteritis/ileus of adjacent small bowel loops.
Operative Findings: 1) anastomotic leak of old sigmoid anastomosis at upper pelvis with associated purulent contamination and exudate 2) secondary involvement of tongue of omentum and loop of small bowel 3) abdominal wall mesh partially divided on
entry
Anastomotic Leak of Sigmoid Anastomosis with associated purulent contamination
-s/p emergent OR 07/28
-IV Zosyn
-NGT to come out today; advance diet per CRS
-pain control
-IVF
-can likely transfer out of ICU today
-CRS to take over as primary
DVT PPx SCD
FULL CODE
Anticipated Discharge: > 48 hours
Subjective/Interval History
-
Date of Service: July 31, 2023
patient states pain controlled
took some sips
no fevers/chills
Objective Data
-
Labs:
Laboratory Results
07/31/23 07/31/23
04:25 04:26
WBC 9.1
Hgb 12.2 L
Hct 35.4 L
Plt Count 161
Sodium 136
Potassium 4.2
Chloride 106
Carbon Dioxide 23
BUN 27 H
Creatinine 1.1
Glucose 111 H
Calcium 7.8 L
Vital Signs:
Vital Signs
Temp Pulse Resp BP Pulse Ox
98.1 F 71 14 143/99 94
07/31/23 07:00 07/31/23 07:00 07/31/23 07:00 07/31/23 07:00 07/31/23 07:00
I&O
07/30/23 07/31/23 08/01/23
06:59 06:59 06:59
Intake Total 650 / 650
Output Total 920 / 920 2044
Balance -270 / -270 -2044 / -2044
Review of Systems
-
History Source: Patient
All other systems: Reviewed and negative
Physical Exam
-
General: No Apparent Distress
HEENT: PERRLA and Other (NGT in place )
Respiratory: Clear to Auscultation; Negative Wheezes
Cardiac: Regular Rhythm and S1/S2
GI: Other (ostomy present; mid-line incision c/d/i; + TERESA drain )
Skin: Warm and Dry; Negative Rash
Neuro: AO x 3
Psych: Calm
Data Reviewed
-
Diagnostic Radiology: Report Reviewed by me
Labs: Labs Reviewed by me
--- NOTE | 2023-07-31 11:00 | CM ---
Met and spoke with patient and who live in a 2 story home but live on 1st floor. Two adult daughters also live in the home. No DME or in-home services. [employer] patient was independent, drove and worked. No psychiatric history. Pharmacy is [facility]
in [place] on [address] PCP [address] Dr[address] Ying.
Patient S/P partial colectomy. Now with NGT, TERESA drain and colostomy. would like [facility] upon discharge for following of colostomy care. Referral will be forwarded. Discharge Plan of Care: [facility].
--- NOTE | 2023-07-31 11:17 | PTCARENOTE ---
NGT removed per colorectal surgery, patient tolerated procedure. Patient allowed sips of clears, advance diet as tolerated. Patient states no concerns at this time.
[2023-07-31] MEDS: ANESTHETIC LOZENGE 1 LOZENGE PO (12:04)
--- NOTE | 2023-07-31 13:44 | WOUNDNOTE ---
WO RN note: Patient sitting in recliner chair. Confirmed with NICHOLE Alexandre can remove post op Aquacell midline dressing for appliance change. Removed Aquacell dressing and applied dry gauze after changing colostomy appliance. Incisional mirza
left intact. Incision without erythema. Moderate ss drainage on removed Aquacell dressing. Stoma pink and oval with small formed brown stool in pouch. Peristomal skin intact. Stoma almost flush at medial and lateral sides. Stomal opening at lateral
side of stoma. Instructed patient and appliance change using Milton wafer # [id number], Linwood seal and Milton pouch #[id number]. Ostomy supplies in room. VN planned when discharged.
[2023-07-31 15:00] VITALS: BP 135/95
--- NOTE | 2023-07-31 15:51 | WOUNDNOTE ---
[facility] RN note: Faxed [employer] secure ostomy starter kit request to Makayla (patient and has given permission).
[2023-07-31 16:05] VITALS: BP 151/97; PULSE 70; O2SAT 97
[2023-07-31] MEDS: LOVENOX 40 MG SC (17:32)
[2023-07-31 23:19] VITALS: BP 162/104
[2023-07-31 23:49] VITALS: BP 152/91
[2023-08-01] MEDS: ZOSYN 50 IV ×5 (00:13→23:59)
[2023-08-01] MEDS: NSS 1000 IV (05:29)
[2023-08-01 05:49] VITALS: BMI 28.0
[2023-08-01] MEDS: TORADOL 15 MG IV ×4 (06:25→23:59)
[2023-08-01 06:31] LABS: Hematocrit 34.9 % (39.0-52.0); Hemoglobin 11.8 g/dL (13.0-18.0); Mean Corp Hgb Conc. 33.8 g/dL (33.0-37.0); Mean Corpuscular Hgb 30.6 pg (27.0-31.0); Mean Corpuscular Volume 90.6 fL (80.0-94.0); Mean Platelet Volume 11.5 fL (7.4-10.4); Platelet Count 148 10^3/uL (130-400); Red Blood Cell Count 3.85 10^6/uL (4.70-6.10); Red Cell Dist. Width 13.2 % (11.5-14.5); White Blood Cell Count 6.8 10^3/uL (4.8-10.8)
[2023-08-01 07:09] LABS: Blood Urea Nitrogen 22 mg/dl (9-20); Calcium 8.3 mg/dl (8.4-10.2); Carbon Dioxide 20 mmol/L (22-30); Chloride 107 mmol/L (98-107); Estimated Creatinine Clearance 69 ml/min; Glucose 90 mg/dl (70-99); Potassium 4.1 mmol/L (3.5-5.1); Sodium 138 mmol/L (135-145); eGFR > 60.00
[2023-08-01 07:30] VITALS: BP 122/73
[2023-08-01] MEDS: PROTONIX IV 40 MG IV (07:56)
[2023-08-01] MEDS: NSS (PRESERVATIVE FREE) 10 ML IV (07:56)
--- NOTE | 2023-08-01 08:58 | PN.CDI ---
CDI
- -
CDI:
Physician Documentation Request
Admit Date: 07/29/23 20:03
Dear Colorectal,
Please review the following and provide your response in the progress notes.
Clinical Indicators:
- 07/28 Post Op Note - EBL 100ml
Laboratory Tests
07/29/23 07/30/23 07/30/23
17:23 00:51 04:57
Hgb 15.8 14.7 14.4
07/31/23 08/01/23
04:25 05:32
Hgb 12.2 L 11.8 L
Please clarify the appropriate diagnosis that supports the above lab abnormalities and additional evaluation, monitoring and/or treatment rendered:
Anemia, due to acute blood loss and hemodilution
Anemia due to hemodilution only
Clinically insignificant abnormal lab values
Other
Use of terms such as suspected, likely, concern for, or probable (associated with a specific diagnosis that is being evaluated, monitored, or treated as if it exists) are acceptable and can be coded in the inpatient setting, when documented at the
time of discharge.
Thank you,
Yady Hyman RN
CDI Specialist
Please use your independent medical judgment in providing your response.
--- NOTE | 2023-08-01 09:28 | W.PN.CRS1 ---
Today's Communication / Plan
-
fulls
ID consult
Assessment/Plan
-
POD#3 1) exploratory laparotomy 2) partial colectomy (resection of old sigmoid anastomosis) 3) colostomy
1. Vitals and labs normal.
2. OOB with PT.
3. Advance diet to fulls.
4. TERESA drain to remain in place prior to discharge.
5. Will consult ID given intraabdominal mesh and ?oral herpes.
6. OR pathology pending.
7. Pain medications: Tylenol/Toradol standing, Dilaudid PRN.
8. TEDS/SCDS in place, add Lovenox for DVT prophylaxis.
9. Wound RN for colostomy teaching.
10. Continue IV Zosyn. Abdominal cultures pending.
12. Of note, his drop in hemoglobin is likely due to acute blood loss and hemodilution.
Subjective Data
Procedure
07/29/2023- 1) exploratory laparotomy 2) partial colectomy (resection of old sigmoid anastomosis) 3) colostomy
Subjective Data
Date of Service: August 01, 2023
Patient states he feels 'okay'. He has stool in his bag. He has no nausea or vomiting. His pain is controlled.
Objective Data
-
Vital Signs
Temp Pulse Resp BP Pulse Ox
98.5 F 68 14 122/73 94
08/01/23 07:30 08/01/23 07:30 08/01/23 07:30 08/01/23 07:30 08/01/23 09:21
Intake & Output
07/31/23 08/01/23 08/02/23
06:59 06:59 06:59
Intake Total 3670 / 3670
Output Total 2044
Balance -2044 / -2044
Intake:
Oral fluids 1020 / 1020
IV fluids (Total) 2400 / 2400
IV piggybacks 100 / 100
Amount instilled into GI Tube ( 150 / 150
Total)
Bowman Sump 150 / 150
Output:
Drain Output (Total) 920 / 920 135 / 135
Right Lower Saud-Dash 920 / 920 135 / 135
Gastrointestinal tube output ( 75 / 75
Total)
Bowman Sump 75 / 75
Urine, Guerrero 1050 / 1050
Urine, Voided 1700 / 1700
Other:
Number of approximated SMALL 1
amounts of urine
Lab Results
08/01/23 05:32
08/01/23 05:32
Physical Exam
-
General: No Acute Distress and AOx3
Abdomen: Soft, Non Distended, Non Tender and Other (colostomy warm and pink with stool in bag, drain serous)
Skin: Warm and Dry
Wound: Dressing in Place
--- NOTE | 2023-08-01 13:41 | CON.ID ---
Consultation
-
Date/Time Consultation Requested: August 01, 2023 0937
Date/Time Consultation Performed: August 01, 2023 1345
Requesting Provider: Alysia Gonsalves PA-C
Performing Provider: Dr. Kellie Romano
Reason for Consultation: Abdominal mesh contamination and ?oral herpes
Chief Complaint / Past History
Chief Complaint
Abdominal pain
History of Present Illness
63-year-old male with history of diverticular stricture status post sigmoidectomy with anastomosis and diverting loop ileostomy in 2021. In 2022 he underwent ileostomy takedown. On June 11, 2023 he underwent ventral incisional hernia repair with
mesh over the previous ileostomy site. Last week she was in [place] when he had an episode of rigors, chills, and abdominal pain which resolved. He felt better until July 28 when he had acute onset of severe diffuse abdominal pain. He presented to
the ED right away. CAT scan of the abdomen pelvis showed anastomotic leak in the sigmoid colon with extraluminal and intraperitoneal gas and contrast in the pelvis. He was taken to the OR emergently status post exploratory lap, partial colectomy
with colostomy. Purulent contamination and exudate noted. Abdominal fluid cultures were obtained. Abdominal wall mesh was partially divided on entry and there is concern of contamination of the mesh from peritonitis. Infectious disease therefore
consulted. He is currently on Zosyn. Patient reports he is making stool. No significant postop pain. He has history of oral herpes. He developed lesions on his lips when he was down in [place]. Normally he only had 2 or lesions but not as many
as this time. He is applying Abreva.
Past History
Additional Past Medical History:
Herpes labialis
Additional Past Surgical History:
Sigmoid diverticular stricture s/p sigmoidectomy with anastomosis and diverting loop ileostomy 2021
Ileostomy takedown, dilation of pelvic anastomotic stricture stricture 2022
Previous ileostomy site incisional hernia status post robotic ventral incisional hernia repair with Ventrilight mesh. (06/11/23)
Allergy History:
No Known Allergies Allergy (Verified 07/29/23 17:00)
Medications Reviewed: Yes
Current Antibiotics:
Zosyn d4
Social History
Tobacco: Non-Smoker
Alcohol: None
Drug: None
Personal:
Living: With Family
Family History
Family History: Not Pertinent
Review of Systems
Review of Systems
General: Negative Fever or Change in Appetite
HEENT: Negative Sinus Problems, Headache or Pharyngitis
Respiratory: Negative Dyspnea or Cough
Gasteroenterology: Negative Nausea or Vomiting
Genital / Urological: Negative Dysuria or Flank Pain
Skin / Hair / Nails: Negative Rash
Neurological: Negative Headache or Dizziness
All systems: All other systems were reviewed and were negative
Vital Signs
Temp Pulse Resp BP Pulse Ox
98.5 F 68 14 122/73 94
08/01/23 07:30 08/01/23 07:30 08/01/23 07:30 08/01/23 07:30 08/01/23 09:21
Physical Exam
Physical Exam
Constitutional: No Acute Distress and Comfortable
Eyes: Sclera Anicteric
Oral: Other (Vesicular lesions, some scabbing, over upper and lower lips)
Cardiovascular: Regular Rate and S1/S2
Pulmonary: Clear
Gastrointestinal: Soft, Non Tender, Non Distended, Normal Bowel Sounds and Other (RLQ edgar drain, cloudy serosanguinous fluid; midline dressing dry)
Genito-Urinary: Negative CVA Tenderness
Extremities: Negative Edema
Neurological: AO x 3
Lab / Diagnostic Study Results
08/01/23 05:32
08/01/23 05:32
Abs Immat Gran (auto) Cancelled 07/30/23 04:57
Absolute Neuts (auto) Cancelled 07/30/23 04:57
Absolute Lymphs (auto) Cancelled 07/30/23 04:57
Absolute Monos (auto) Cancelled 07/30/23 04:57
Absolute Basos (auto) Cancelled 07/30/23 04:57
Total Counted 100 07/30/23 00:51
Immature Gran % Cancelled 07/30/23 04:57
Neutrophils % Cancelled 07/30/23 04:57
Lymphocytes % Cancelled 07/30/23 04:57
Monocytes % Cancelled 07/30/23 04:57
Eosinophils % Cancelled 07/30/23 04:57
Basophils % Cancelled 07/30/23 04:57
Abs Neuts (Manual) 7.2 10^3/uL (1.4-6.5) H 07/30/23 00:51
Segmented Neutrophils 40 % (42-75) L 07/30/23 00:51
Band Neutrophils 41 % (0-3) H 07/30/23 00:51
Lymphocytes (Manual) 8 % (20-51) L 07/30/23 00:51
PT 15.6 Sec (11.4-14.6) H 07/30/23 04:57
INR 1.25 07/30/23 04:57
Lactic Acid 2.4 mmol/L (0.7-2.0) H 07/30/23 04:57
Microbiology Results
Micro:
07/29/23 21:35 Anaerobic Culture - Preliminary
Abdomen Culture pending. Anaerobic cultures are examined after 3
days incubation. Additional information to follow.
07/29/23 21:35 Wound Culture - Preliminary
Abdomen Gram negative bacilli
Gram Stain - Preliminary
07/29/23 17:23 Blood Culture - Preliminary
Blood/Venous No Growth in 48 hours- Final report to follow
07/29/23 17:23 Blood Culture - Preliminary
Blood/Venous No Growth in 48 hours- Final report to follow
07/28 CT a/p with IV contrast: Interval development of anastomotic leak in the sigmoid colon with presence of significant amounts of extraluminal/intraperitoneal gas and contrast in the pelvis. Reactive enteritis/ileus of adjacent small bowel loops.
Assessment / Plan
# Purulent peritonitis from sigmoid anastomotic leak status post resection, colostomy, and washout.
# Probable ventral mesh contamination per colorectal. He is status post robotic ventral hernia repair with mesh on May 2023. During emergent abdominal laparotomy, the mesh had to be for entry.
-OR aerobic culture gram-negative bao. Anaerobic culture pending.
-Continue Zosyn pending final culture data.
-Plan to treat purulent peritonitis for 7 to 10 days followed by suppressive therapy for infected mesh. I had extensive discussion with the patient and his that it is extremely difficult to achieve sterilization of an infected foreign body
with antibiotic alone without removal of the foreign body. He may require lifelong suppressive antibiotic therapy. He is relatively young at 63 and understandably he prefers not to be on lifelong antibiotic. Also discussed potential complications
including C. difficile diarrhea and development of antibiotic resistance with chronic antibiotic use. If there is a small chance that the mesh in not contaminated, second option is to eventually stop suppressive therapy in 6 to 12 months then
watchful waiting; if signs and symptoms of infected mesh recur, he will require mesh removal then, if able.
# Herpes labialis
- Ordered topical acyclovir 5x/d x 7d
--- NOTE | 2023-08-01 14:07 | STATUS ---
SITUATION:
BACKGROUND:
ASSESSMENT:
RECOMMENDATION:
--- NOTE | 2023-08-01 14:07 | CM ---
NGT out, edgar drain in place, advanced to full liquids, new colostomy. Discharge Plan of Care: [facility].
[2023-08-01] MEDS: ZOVIRAX OINTMENT 5% 1 APPLIC TOPICAL ×3 (14:38→21:24)
[2023-08-01 14:57] VITALS: BP 118/73
[2023-08-01 15:25] VITALS: BP 151/97; PULSE 70; O2SAT 97
[2023-08-01] MEDS: NSS IV (15:29)
--- NOTE | 2023-08-01 16:19 | VNURNOTE ---
Home Health Liaison met with patient and Chiara at 1530 to discuss [facility] nurse/therapy, visits, schedule and homebound status. Patient is agreeable and understands that visits at home will be 2-3 x per week to assess and teach medical management
and ostomy care.
[facility] brochure provided with contact information. Patient is aware that [facility] will contact him for start of care in 1-2 days after discharge from .
[facility] referral completed and accepted previously in [facility] Port.
[2023-08-01] MEDS: LOVENOX 40 MG SC (17:26)
--- NOTE | 2023-08-01 18:00 | PTCARENOTE ---
Patient advanced to full liquid diet earlier in AM, tolerating PO intake, IVF DC per colorectal surgery. Patient states occasional abdominal cramping when ambulating, relieved by rest and scheduled IV toradol. Patient states frequent passing gas,
moderate brown liquid stool output in colostomy earlier in shift. Midline incision dressing changed by this RN, incision approximated with latoya and mirza in place, moderate serosanguineous drainage, dry 4x4 gauze applied and colorectal surgery
made aware. RLQ TERESA drain with small amount of serosanguineous output throughout shift, area around drain C/D/I.
[2023-08-01 23:20] VITALS: BP 114/75
[2023-08-02 03:47] VITALS: BP 139/76
[2023-08-02] MEDS: ZOSYN 50 IV ×3 (05:10→17:21)
[2023-08-02 05:34] VITALS: BMI 28.4
[2023-08-02 06:00] VITALS: BMI 28.4
[2023-08-02 06:08] LABS: Hematocrit 31.1 % (39.0-52.0); Hemoglobin 10.8 g/dL (13.0-18.0); Mean Corp Hgb Conc. 34.7 g/dL (33.0-37.0); Mean Corpuscular Hgb 30.7 pg (27.0-31.0); Mean Corpuscular Volume 88.4 fL (80.0-94.0); Mean Platelet Volume 11.4 fL (7.4-10.4); Platelet Count 181 10^3/uL (130-400); Red Blood Cell Count 3.52 10^6/uL (4.70-6.10); Red Cell Dist. Width 13.5 % (11.5-14.5); White Blood Cell Count 6.8 10^3/uL (4.8-10.8)
[2023-08-02 06:30] LABS: Blood Urea Nitrogen 16 mg/dl (9-20); Calcium 8.4 mg/dl (8.4-10.2); Carbon Dioxide 22 mmol/L (22-30); Chloride 105 mmol/L (98-107); Estimated Creatinine Clearance 76 ml/min; Glucose 102 mg/dl (70-99); Potassium 3.9 mmol/L (3.5-5.1); Sodium 135 mmol/L (135-145); eGFR > 60.00
[2023-08-02 07:30] VITALS: BP 143/83
[2023-08-02] MEDS: NSS (PRESERVATIVE FREE) 10 ML IV (08:42)
[2023-08-02] MEDS: TORADOL 15 MG IV ×3 (08:42→18:32)
[2023-08-02] MEDS: PROTONIX IV 40 MG IV (08:43)
[2023-08-02] MEDS: ZOVIRAX OINTMENT 5% 1 APPLIC TOPICAL ×5 (08:43→21:53)
--- NOTE | 2023-08-02 08:57 | W.PN.GS2 ---
Addendum entered and electronically signed by Steve Robin MD 08/02/23 19:45:
This is a delayed entry and addendum to progress note. Patient seen earlier during the day with nurse practitioner.
He is feeling well. Minimal postoperative incisional/abdominal pain. Ostomy functioning and has tolerated dietary advancement to low residue foods.
AFVSS
Left-sided ostomy pink and with stool and flatus in bag.
Midline incision with wound mirza and latoya
Assessment/plan: Overall doing well with his postoperative recovery and tolerance of dietary advancement
Potential removal TERESA drain tomorrow
Potential discharge home tomorrow
Anticipate continue course of antibiotics secondary to infectious risks associated with recent prosthetic mesh for herniorrhaphy and now laparotomy with contaminated peritoneal cavity from anastomotic stricture with perforation.
Original Note:
Today's Communication / Plan
-
Advance diet
Assessment / Plan
-
63 yo male presenting with anastomotic leak with purulent peritonitis now POD #4 ex lap with partial colectomy and colostomy creation. Abdominal wall mesh partially divided upon entry.
AFVSS
No leukocytosis. H/H with slight downtrend. No active bleeding noted.
+Flatus/stool
TERESA with cloudy serous fluid
--Advance to LRD
--Continue multimodal analgesics
--ABX/herpes management as per ID
--Continue TERESA drain
--VTE ppx with scd's/lovenox
Subjective Data
-
Date of Service: August 02, 2023
Patient seen and examined at bedside. Denies n/v. Passing flatus/stool via ostomy. Has had difficulty sleeping d/t noise and interruptions.
Objective Data
-
Intake and Output
08/01/23 08/02/23 08/03/23
06:59 06:59 06:59
Intake Total 3670 / 3670 1720 / 1720
Output Total 1835 / 1835 975 / 975
Balance 1834 745 / 745
Intake:
Oral fluids 1020 / 1020 720 / 720
IV fluids (Total) 2400 / 2400 800 / 800
IV piggybacks 100 / 100 200 / 200
Amount instilled into GI Tube ( 150 / 150
Total)
Roberts Sump 150 / 150
Output:
Drain Output (Total) 135 / 135 100 / 100
Right Lower Saud-Dash 135 / 135 100 / 100
Urine, Voided 1700 / 1700 875 / 875
Other:
Number of approximated SMALL 1
amounts of urine
Vital Signs
Temp Pulse Resp BP Pulse Ox
98.2 F 64 18 143/83 97
08/02/23 07:30 08/02/23 07:30 08/02/23 07:30 08/02/23 07:30 08/02/23 07:30
Lab Results
08/02/23 04:56
08/02/23 04:56
Calcium 8.4 mg/dl (8.4-10.2) 08/02/23 04:56
Magnesium 1.6 mg/dl (1.6-2.3) 07/30/23 04:57
Total Bilirubin 1.0 mg/dl (0.2-1.3) 07/29/23 17:23
AST 34 U/L (17-59) 07/29/23 17:23
ALT 48 U/L (0-50) 07/29/23 17:23
Alkaline Phosphatase 72 U/L (38-126) 07/29/23 17:23
Total Protein 8.0 g/dl (6.3-8.2) 07/29/23 17:23
Albumin 4.7 g/dl (3.5-5.0) 07/29/23 17:23
Physical Exam
-
NAD
Lips with crusting herpetic lesions
ABD soft, nd, nt. Stoma pink/viable. Incision well approximated. TERESA with cloudy serous fluid
--- NOTE | 2023-08-02 12:28 | W.PN.ID1 ---
Date of Service
Date of Service: August 02, 2023
Today's Communication
continue zosyn
Assessment / Plan
# Purulent peritonitis from sigmoid anastomotic leak status post resection, colostomy, and washout.
# Probable ventral mesh contamination per colorectal. He is status post robotic ventral hernia repair with mesh on May 2023. During emergent abdominal laparotomy, the mesh had to be for entry.
-OR aerobic culture gram-negative bao. Anaerobic culture pending.
-Continue Zosyn pending final culture data.
-Plan to treat purulent peritonitis for 7 to 10 days followed by suppressive therapy for infected mesh. I had extensive discussion with the patient and his that it is extremely difficult to achieve sterilization of an infected foreign body
with antibiotic alone without removal of the foreign body. He may require lifelong suppressive antibiotic therapy. He is relatively young at 63 and understandably he prefers not to be on lifelong antibiotic. Also discussed potential complications
including C. difficile diarrhea and development of antibiotic resistance with chronic antibiotic use. If there is a small chance that the mesh in not contaminated, second option is to eventually stop suppressive therapy in 6 to 12 months then
watchful waiting; if signs and symptoms of infected mesh recur, he will require mesh removal then, if able.
# Herpes labialis
- Ordered topical acyclovir 5x/d x 7d
- apply with glove
Chief Complaint
-: Other (perionitis)
Subjective / Review of Systems
afebrile
bp stable
without leukocytosis
cr stable
abd cx: GNR
drain fluid clearing
Vital Signs / Physical Exam
Vital Signs
Vital Signs
Temp Pulse Resp BP Pulse Ox
98.2 F 64 18 143/83 97
08/02/23 07:30 08/02/23 07:30 08/02/23 07:30 08/02/23 07:30 08/02/23 07:30
Physical Exam
Constitutional: No Acute Distress
Head: Other (herpes improving)
Cardiovascular: Regular Rate and S1/S2; Negative Murmur or Rub
Pulmonary: Clear and Symmetric; Negative Wheezes or Rales
Gastrointestinal: Soft, Non Tender, Non Distended and Normal Bowel Sounds
Skin: Warm and Dry; Negative Rash or Jaundice
Wound: Other (surgical site clean, no erythema, warmth tenderness or drainage)
Objective Data
Lab Data
Lab Results
08/02/23 04:56
08/02/23 04:56
PT 15.6 Sec (11.4-14.6) H 07/30/23 04:57
INR 1.25 07/30/23 04:57
APTT 29.5 Sec (23.4-35.0) 07/30/23 04:57
Estimated Creat Clear 76 ml/min 08/02/23 04:56
Lactic Acid 2.4 mmol/L (0.7-2.0) H 07/30/23 04:57
Total Bilirubin 1.0 mg/dl (0.2-1.3) 07/29/23 17:23
AST 34 U/L (17-59) 07/29/23 17:23
ALT 48 U/L (0-50) 07/29/23 17:23
Alkaline Phosphatase 72 U/L (38-126) 07/29/23 17:23
Most recent labs reviewed.
Micro Results:
07/29/23 21:35 Anaerobic Culture - Preliminary
Abdomen Culture pending. Anaerobic cultures are examined after 3
days incubation. Additional information to follow.
07/29/23 21:35 Wound Culture - Preliminary
Abdomen Gram negative bacilli
Gram Stain - Preliminary
07/29/23 17:23 Blood Culture - Preliminary
Blood/Venous No Growth in 72 hours- Final report to follow
07/29/23 17:23 Blood Culture - Preliminary
Blood/Venous No Growth in 72 hours- Final report to follow
5/14 CT a/p with IV contrast: Interval development of anastomotic leak in the sigmoid colon with presence of significant amounts of extraluminal/intraperitoneal gas and contrast in the pelvis. Reactive enteritis/ileus of adjacent small bowel loops.
[2023-08-02 15:53] VITALS: BP 141/91
[2023-08-02] MEDS: LOVENOX 40 MG SC (17:21)
[2023-08-03] MEDS: ZOSYN 50 IV ×5 (00:42→23:28)
[2023-08-03] MEDS: FLUSH (NSS) 3 FLUSH IV (00:43)
[2023-08-03] MEDS: TORADOL 15 MG IV ×4 (00:43→18:04)
[2023-08-03 01:39] VITALS: BP 156/98
[2023-08-03 06:00] VITALS: BMI 28.0
[2023-08-03 06:22] LABS: Hematocrit 31.9 % (39.0-52.0); Mean Corp Hgb Conc. 34.5 g/dL (33.0-37.0); Mean Corpuscular Volume 89.9 fL (80.0-94.0); Mean Platelet Volume 11.2 fL (7.4-10.4); Platelet Count 179 10^3/uL (130-400); Red Blood Cell Count 3.55 10^6/uL (4.70-6.10); Red Cell Dist. Width 12.9 % (11.5-14.5); White Blood Cell Count 6.5 10^3/uL (4.8-10.8)
[2023-08-03 06:43] LABS: Blood Urea Nitrogen 15 mg/dl (9-20); Calcium 8.5 mg/dl (8.4-10.2); Carbon Dioxide 22 mmol/L (22-30); Chloride 107 mmol/L (98-107); Estimated Creatinine Clearance 76 ml/min; Glucose 103 mg/dl (70-99); Sodium 136 mmol/L (135-145); eGFR > 60.00
[2023-08-03 07:20] VITALS: BP 141/94
[2023-08-03] MEDS: PROTONIX IV 40 MG IV (08:23)
[2023-08-03] MEDS: NSS (PRESERVATIVE FREE) 10 ML IV (08:23)
[2023-08-03] MEDS: ZOVIRAX OINTMENT 5% 1 APPLIC TOPICAL ×4 (08:24→21:10)
--- NOTE | 2023-08-03 09:19 | W.PN.GS2 ---
Addendum entered and electronically signed by Steve Robin MD 08/03/23 10:56:
Patient seen and examined in follow-up with nurse estela. Agree with documented progress note.
Tolerating p.o. intake
Ostomy functioning
ABD: Soft, nondistended, wound mirza removed. Ostomy functional
TERESA serosanguineous fluid
Dispo planning for discharge, stable from postoperative surgical standpoint
Will remove TERESA prior to DC home
Await ID decision on discharge antibiotic plan
Outpatient surgical follow-up with Dr. Yi as well as Dr. Feng
Original Note:
Today's Communication / Plan
-
dispo planning
Assessment / Plan
-
63 yo male presenting with anastomotic leak with purulent peritonitis now POD #5 ex lap with partial colectomy and colostomy creation. Abdominal wall mesh partially divided upon entry.
AFVSS
Labs stable
+Flatus/stool
TERESA with SSF
--Advance to LRD
--Continue multimodal analgesics
--ABX/herpes management as per ID. Will discuss PO options to facilitate discharge.
--Continue TERESA drain until discharge
--VTE ppx with scd's/lovenox
Tentative d/c later today vs tomorrow once plan for antibiotics in place
Subjective Data
-
Date of Service: August 03, 2023
Patient seen and examined at bedside. OOB to chair and eating breakfast. Denies pain. Passing stool/flatus via stoma. Questions addressed.
Objective Data
-
Intake and Output
08/02/23 08/03/23 08/04/23
06:59 06:59 06:59
Intake Total 1720 / 1720 1100 / 1100
Output Total 975 / 975 790 / 790
Balance 745 / 745 310 / 310
Intake:
Oral fluids 720 / 720 960 / 960
IV fluids (Total) 800 / 800
IV piggybacks 200 / 200 140 / 140
Output:
Drain Output (Total) 100 / 100 140 / 140
Right Lower Saud-Dash 100 / 100 140 / 140
Urine, Voided 875 / 875 650 / 650
Vital Signs
Temp Pulse Resp BP Pulse Ox
98.6 F 56 17 141/94 96
08/03/23 07:20 08/03/23 07:20 08/03/23 07:20 08/03/23 07:20 08/03/23 07:20
Lab Results
08/03/23 05:29
08/03/23 05:29
Calcium 8.5 mg/dl (8.4-10.2) 08/03/23 05:29
Magnesium 1.6 mg/dl (1.6-2.3) 07/30/23 04:57
Total Bilirubin 1.0 mg/dl (0.2-1.3) 07/29/23 17:23
AST 34 U/L (17-59) 07/29/23 17:23
ALT 48 U/L (0-50) 07/29/23 17:23
Alkaline Phosphatase 72 U/L (38-126) 07/29/23 17:23
Total Protein 8.0 g/dl (6.3-8.2) 07/29/23 17:23
Albumin 4.7 g/dl (3.5-5.0) 07/29/23 17:23
Physical Exam
-
NAD
Lips with crusting herpetic lesions
ABD soft, nd, nt. Stoma pink/viable with flatus/loose stool in appliance. Incision well approximated, mirza/latoya present. TERESA with SSF
[2023-08-03] MEDS: FLUSH (NSS) 2 FLUSH IV ×2 (12:39→23:29)
[2023-08-03 15:44] VITALS: BP 146/95
--- NOTE | 2023-08-03 15:48 | CM ---
CM reviewed chart and pt close to dc
[facility]ERLY [facility] has accepted pt for service
CM consult for potential IV abx
Will await ID's final tx plan
Discharge Disposition- [facility], follow for potential IV abx
[2023-08-03] MEDS: LOVENOX 40 MG SC (17:26)
[2023-08-03] MEDS: ZOVIRAX OINTMENT 5% TOPICAL (17:27)
[2023-08-03 23:58] VITALS: BP 148/88
[2023-08-04] MEDS: ZOSYN 50 IV ×2 (05:37→11:48)
[2023-08-04 06:00] VITALS: BMI 28.0
[2023-08-04 07:10] VITALS: BP 130/78
[2023-08-04] MEDS: PROTONIX IV 40 MG IV (09:36)
[2023-08-04] MEDS: NSS (PRESERVATIVE FREE) 10 ML IV (09:37)
[2023-08-04] MEDS: ZOVIRAX OINTMENT 5% 1 APPLIC TOPICAL (09:38)
--- NOTE | 2023-08-04 09:56 | W.PN.ID1 ---
Date of Service
Date of Service: August 04, 2023
Today's Communication
DC home on Augmentin 875mg po bid and Bactrim DS 1 tab bid x 4 more weeks
Assessment / Plan
# Purulent peritonitis from sigmoid anastomotic leak status post resection, colostomy, and washout.
# Probable ventral mesh contamination per colorectal. He is status post robotic ventral hernia repair with mesh on May 2023. During emergent abdominal laparotomy, the mesh had to be for entry.
# Allergy to levofloxacin
-OR aerobic cultures: Hafnei alvei, Enterobacter cloacae, Enterococcus faecalis. Anaerobic culture pending.
- Transition Zosyn to Augmentin 875mg po bid and Bactrim DS 1 tab bid x 4 weeks, then stop and watchful observation. (See discussion below)
Low potassium diet while on BActrim.
Weekly CBC, BMP while on Bactrim ( I placed order in [facility]).
-Again, discussed it is extremely difficult to achieve sterilization of an infected foreign body with antibiotic alone without removal of the foreign body. He may require lifelong suppressive antibiotic therapy. He is relatively young at 63
and understandably he prefers not to be on lifelong antibiotic. Also discussed potential complications including C. difficile diarrhea and development of antibiotic resistance with chronic antibiotic use. Given the organisms isolated without
monotherapy option, instead of suppressive therapy, treat with 4 weeks po antibiotics then observe. If signs and symptom of mesh infection, the mesh should be removed. Patient agrees with watchful observation after a course of antibiotic.
- Follow up with me in 2 to 3 weeks.
# Herpes labialis - all scabbed.
- Can topical acyclovir.
Chief Complaint
-: Other (perionitis)
Subjective / Review of Systems
Has multiple questions. Overall ready to go home.
Vital Signs / Physical Exam
Vital Signs
Vital Signs
Temp Pulse Resp BP Pulse Ox
98.6 F 57 18 130/78 96
08/04/23 07:10 08/04/23 07:10 08/04/23 07:10 08/04/23 07:10 08/04/23 07:10
Physical Exam
Constitutional: No Acute Distress
Oropharyngeal: Other (labial lesions all scabbed. )
Cardiovascular: Regular Rate and S1/S2
Pulmonary: Clear
Gastrointestinal: Soft, Non Tender, Non Distended and Other (ostomy intact)
Genito-Urinary: Negative CVA Tenderness
Neurological: AO x 3
Objective Data
Lab Data
Lab Results
08/03/23 05:29
08/03/23 05:29
PT 15.6 Sec (11.4-14.6) H 07/30/23 04:57
INR 1.25 07/30/23 04:57
APTT 29.5 Sec (23.4-35.0) 07/30/23 04:57
Estimated Creat Clear 76 ml/min 08/03/23 05:29
Lactic Acid 2.4 mmol/L (0.7-2.0) H 07/30/23 04:57
Total Bilirubin 1.0 mg/dl (0.2-1.3) 07/29/23 17:23
AST 34 U/L (17-59) 07/29/23 17:23
ALT 48 U/L (0-50) 07/29/23 17:23
Alkaline Phosphatase 72 U/L (38-126) 07/29/23 17:23
Most recent labs reviewed.
Micro Results:
07/29/23 21:35 Anaerobic Culture - Preliminary
Abdomen Culture pending. Anaerobic cultures are examined after 3
days incubation. Additional information to follow.
07/29/23 17:23 Blood Culture - Final
Blood/Venous No Growth - Final Report
07/29/23 17:23 Blood Culture - Final
Blood/Venous No Growth - Final Report
07/29/23 21:35 Wound Culture - Preliminary
Abdomen Hafnei alvei
Enterobacter cloacae
Enterococcus faecalis
Gram Stain - Preliminary
07/28 CT a/p with IV contrast: Interval development of anastomotic leak in the sigmoid colon with presence of significant amounts of extraluminal/intraperitoneal gas and contrast in the pelvis. Reactive enteritis/ileus of adjacent small bowel loops.
--- NOTE | 2023-08-04 10:02 | W.PN.CRS1 ---
Today's Communication / Plan
-
possible d/c later today if cleared by ID
TERESA drain d'jerri
Assessment/Plan
-
63 yo male presenting with anastomotic leak with purulent peritonitis now POD #5 ex lap with partial colectomy and colostomy creation. Abdominal wall mesh partially divided upon entry.
AFVSS
+Flatus/stool
TERESA with sersanginous output
--Continue LRD
--Continue multimodal analgesics
--ABX/herpes management as per ID. Will discuss PO options to facilitate discharge.
--TERESA drain removed at bedside
--VTE ppx with scd's/lovenox
--I have asked wound RN if they can come by for one more teaching with patient and his .
--Okay for discharge later today once antibiotic plan by ID in place. Discussed with patient. All questions answered.
Subjective Data
Procedure
07/29/2023- 1) exploratory laparotomy 2) partial colectomy (resection of old sigmoid anastomosis) 3) colostomy
Subjective Data
Date of Service: August 04, 2023
Patient states he is feeling well. He has no nausea or vomiting. His pain is well controlled. He is tolerating a diet. His stoma has function. He has no complaints.
Objective Data
-
Vital Signs
Temp Pulse Resp BP Pulse Ox
98.6 F 57 18 130/78 96
08/04/23 07:10 08/04/23 07:10 08/04/23 07:10 08/04/23 07:10 08/04/23 07:10
Intake & Output
08/03/23 08/04/23 08/05/23
06:59 06:59 06:59
Intake Total 1100 / 1100 1920 / 1920
Output Total 790 / 790 110 / 110
Balance 310 / 310 1810 / 1810
Intake:
Oral fluids 960 / 960 192 / 1919
IV piggybacks 140 / 140
Output:
Drain Output (Total) 140 / 140 110 / 110
Right Lower Saud-Dash 140 / 140 110 / 110
Urine, Voided 650 / 650
Other:
Number of approximated SMALL 5
amounts of urine
Number of approximated MODERATE 4
amounts of urine
Lab Results
08/03/23 05:29
08/03/23 05:29
Physical Exam
-
General: No Acute Distress and AOx3
Abdomen: Soft, Non Distended, Non Tender and Other (TERESA drain with serosanginous output)
Skin: Warm and Dry
Wound: Dressing Changed
Incision: Clear, Dry, Intact
[2023-08-04 10:45] VITALS: BP 150/91
--- NOTE | 2023-08-04 10:51 | W.DS.TRANS ---
DC Summary - [place]
-
Discharge Instructions:
Discharge Diagnosis/Procedures 1) exploratory laparotomy 2) partial colectomy (
resection of old sigmoid anastomosis) 3)
colostomy
Diet Low Residue
Activity No strenuous activity
Additional Activity No lifting over 10lbs (gallon of milk)
Driving Restrictions Not until seen by your Dr
Bathing Restrictions OK to Shower
Wound Care Cover incision with gauze and tape. Change daily
and when taking a shower. Surgical clips will
be removed during your follow up appointment.
Call your surgeon if you have fever >100.5,
nausea with vomiting or worsening abdominal pain
.
Instructions: Low Fiber Diet
Stand-Alone Forms:
Changes to Home Medications: Yes
Discharge Medications:
DC Medications w/original date entered in [facility]
ibuprofen 200 mg tablet 400 mg PO Q6HPRN PRN mild pain 07/29/23
acetaminophen 325 mg tablet 650 mg (2 x 325 mg) PO Q4HPRN PRN mild pain #1 tab 08/03/23
oxycodone 5 mg tablet 5 mg PO Q4HPRN PRN breakthrough/severe pain #15 tabs 08/03/23
amoxicillin 875 mg-potassium clavulanate 125 mg tablet 1 tab PO BID 30 days #60 tabs 08/04/23
sulfamethoxazole 800 mg-trimethoprim 160 mg tablet (Bactrim DS) 1 tab PO BID 30 days #60 tabs 08/04/23
Home Medication Changes
amoxicillin 875 mg-potassium clavulanate 125 mg tablet 1 tab PO BID 30 days #60 tabs 08/04/23
sulfamethoxazole 800 mg-trimethoprim 160 mg tablet (Bactrim DS) 1 tab PO BID 30 days #60 tabs 08/04/23
ibuprofen 200 mg tablet 400 mg PO Q6HPRN PRN mild pain 07/29/23
acetaminophen 325 mg tablet 650 mg (2 x 325 mg) PO Q4HPRN PRN mild pain #1 tab 08/03/23
oxycodone 5 mg tablet 5 mg PO Q4HPRN PRN breakthrough/severe pain #15 tabs 08/03/23
Pending Results: No
--- NOTE | 2023-08-04 11:10 | WOUNDNOTE ---
[facility] RN note: Patient and reinstructed colostomy appliance change using Makayla wafer # [id number], Linwood seal and Makayla pouch # [id number]. Peristomal skin with minimal mild red intact skin inferiorly. Stoma pink with some moya slough medial edge of
stoma suspect he may eventually have a mucocutaneous separation. Ostomy supplies and teaching folder in room. VN to follow.
[2023-08-04] MEDS: TYLENOL 650 MG PO (11:48)
[2023-08-04] MEDS: ZOVIRAX OINTMENT 5% TOPICAL (11:48)
--- NOTE | 2023-08-04 12:03 | WOUNDNOTE ---
Updated Colorectal PA Alysia Gonsalves via tiger text re: small amount of moya slough medial edge of stoma noted, suspect he may develop a muco-cutaneous separation there.
--- NOTE | 2023-08-04 12:14 | CM ---
CM met with pt and spouse bedside
Discharge order noted
Plan for home with [facility], new ostomy and PO abx
IMM verbally reviewed- copy provided
[facility] aware of dc
Discharge Disposition- home with [facility]
== END 2023-08-04 13:10 | disposition home health service (06) | DRG 329 ==
LOC: 2 NORTH 20:03
PROVIDERS: Nurse Practitioner Primary Care; Registered Nurse; Surgery; ADMITTING PHYSICIAN Internal Medicine; ATTENDING PHYSICIAN Surgery; EMERGENCY PHYSICIAN Emergency Medicine; FAMILY PHYSICIAN Internal Medicine; OTHER PHYSICIAN Internal Medicine Infectious Disease; OTHER PHYSICIAN Internal Medicine Pulmonary Disease
PROC: 0D9670Z Drainage of Stomach with Drainage Device, Via Natural or Artificial Opening (ICD-10-PCS; 2023-07-29)
PROC: 0DTN0ZZ Resection of Sigmoid Colon, Open Approach (ICD-10-PCS; 2023-07-30)
PROC: 0D1M0Z4 Bypass Descending Colon to Cutaneous, Open Approach (ICD-10-PCS; 2023-07-30)
PROC: 5A09357 Assistance with Respiratory Ventilation, Less than 24 Consecutive Hours, Continuous Positive Airway Pressure (ICD-10-PCS; 2023-07-31)
DX: K91.89 Other postprocedural complications and disorders of digestive system (principal); A41.9 Sepsis, unspecified organism; K65.9 Peritonitis, unspecified; N17.9 Acute kidney failure, unspecified; D62 Acute posthemorrhagic anemia; K66.0 Peritoneal adhesions (postprocedural) (postinfection); B00.1 Herpesviral vesicular dermatitis; E83.42 Hypomagnesemia; Y83.8 Other surgical procedures as the cause of abnormal reaction of the patient, or of later complication, without mention of misadventure at the time of the procedure; Z90.49 Acquired absence of other specified parts of digestive tract; Z87.19 Personal history of other diseases of the digestive system
CPT/HCPCS: 88307; 71045; 74177; 80048; 80053; 81003; 83605; 83735; 85025; 85027; 85610; 85730; 87040; 87070; 87075; 87076; 87077; 87185; 87186; 87205; 96365; 96375; 97116; 97163; 99285; Q9967

== ENCOUNTER → 2023-11-18 13:49 | Outpatient (REF) | payer BC, SELFPAY | LOC: RAD 13:49 | PROVIDERS: ATTENDING PHYSICIAN Surgery; FAMILY PHYSICIAN Internal Medicine; REFERRING PHYSICIAN Surgery | DX: K46.9 Unspecified abdominal hernia without obstruction or gangrene (principal) | CPT/HCPCS: 74177; Q9967 ==

== ENCOUNTER → 2024-01-21 06:25 | Day surgery (SDC) | payer BC, SELFPAY | LOC: GI 06:25 | PROVIDERS: ATTENDING PHYSICIAN Surgery | DX: Z12.11 Encounter for screening for malignant neoplasm of colon (principal); Z86.0100 Personal history of colon polyps, unspecified; K57.30 Diverticulosis of large intestine without perforation or abscess without bleeding; D12.2 Benign neoplasm of ascending colon; K52.89 Other specified noninfective gastroenteritis and colitis | CPT/HCPCS: 45380; 88305 ==

== ENCOUNTER 2024-01-22 06:06 | Inpatient (IN) | payer BC, SELFPAY ==
[2024-01-09 10:51] VITALS: BMI 28.2
[2024-01-09 10:53] LABS: Hematocrit 45.6 % (39.0-52.0); Mean Corp Hgb Conc. 35.1 g/dL (33.0-37.0); Mean Corpuscular Hgb 29.9 pg (27.0-31.0); Mean Corpuscular Volume 85.2 fL (80.0-94.0); Mean Platelet Volume 10.4 fL (7.4-10.4); Platelet Count 277 10^3/uL (130-400); Red Blood Cell Count 5.35 10^6/uL (4.70-6.10); Red Cell Dist. Width 13.1 % (11.5-14.5); White Blood Cell Count 8.4 10^3/uL (4.8-10.8)
[2024-01-09 11:02] LABS: INR 1.06; PT 13.6 Sec (11.4-14.6)
[2024-01-09 11:03] LABS: APTT 27.1 Sec (23.4-35.0)
[2024-01-09 12:02] LABS: ALT (SGPT) 31 U/L (0-50); AST (SGOT) 29 U/L (17-59); Albumin 4.8 g/dl (3.5-5.0); Alkaline Phosphatase 55 U/L (38-126); Blood Urea Nitrogen 21 mg/dl (9-20); Calcium 9.9 mg/dl (8.4-10.2); Carbon Dioxide 24 mmol/L (22-30); Chloride 101 mmol/L (98-107); Estimated Creatinine Clearance 73 ml/min; Glucose 100 mg/dl (70-99); Potassium 4.6 mmol/L (3.5-5.1); Sodium 140 mmol/L (135-145); Total Bilirubin 1.2 mg/dl (0.2-1.3); Total Protein 8.1 g/dl (6.3-8.2); eGFR > 60.00
[2024-01-09 13:58] LABS: Glycohemoglobin (HgbA1c) 5.5 % (4.0-5.6)
[2024-01-22] VITALS (16 sets, daily range): BP systolic 20–170; BP diastolic 78–113; BMI 28.2
[2024-01-22] MEDS: TYLENOL 1000 MG PO (06:34)
[2024-01-22] MEDS: NEURONTIN 600 MG PO (06:34)
[2024-01-22] MEDS: ENTEREG 12 MG PO (06:35)
--- NOTE | 2024-01-22 12:38 | W.IMMPOSTOP ---
Addendum entered and electronically signed by Tramaine Yi MD 01/22/24 12:48:
Patient's updated re: my portion of the procedure via phone conversation.
Original Note:
Surgical Immed Post Op Note
-
Primary Surgeon: Louisa Yi MD
Assisting Surgeon: SABINO Gutierrez; JOANA Shah
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
Post-op Diagnosis: same
Procedure Performed: 1) robotic colostomy takedown 2) flexible sigmoidoscopy
Anesthesia Type: general plus local
Specimen / Cultures: colostomy
Estimated Blood Loss: 50 cc
Complications: no immediate
Operative Findings: 1) adhesions 2) parastomal and midline hernias
#19 Esa in pelvis.
Guerrero, stents and ureteral ICG by Dr. James of urology. R stent removed at end of case.
Will send to med surg.
--- NOTE | 2024-01-22 13:06 | W.IMMPOSTOP ---
Surgical Immed Post Op Note
-
Primary Surgeon: Jung
Assisting Surgeon: JOANA Pinon
Pre-op Diagnosis: Ventral incisional hernia
Post-op Diagnosis: Ventral incisional hernia
Procedure Performed: Robotic primary ventral incisional hernia repair x2
Anesthesia Type: General
Specimen / Cultures: None
Estimated Blood Loss: 7 cc
Complications: None
Operative Findings:
1. Ventral incisional hernia at upper aspect of prior midline incision, fascial defect 5 cm --> closed primarily with 0 PDS symmetric suture
2. Ostomy fascial opening 4 cm --> posterior sheath closed robotically with 2-0 PDS spiral suture, anterior sheath closed with 0 PDS, skin closed loosely with latoya
3. No hernia recurrence at prior mesh repair
[2024-01-22 13:39] LABS: % Basophils 0.2 % (0-2); % Immature Granulocytes 0.5 % (0-0.5); % Lymphocytes 2.7 % (20.5-51.1); % Monocytes 2.8 % (1.7-9.3); % Neutrophils 93.8 % (42.2-75.2); Absolute Immature Granulocytes 0.1 10^3/uL (0-0.05); Absolute Lymphocytes 0.4 10^3/uL (1.2-3.4); Absolute Monocytes 0.4 10^3/uL (0.1-0.6); Absolute Neutrophils 14.3 10^3/uL (1.4-6.5); Hematocrit 44.8 % (39.0-52.0); Hemoglobin 15.8 g/dL (13.0-18.0); Mean Corp Hgb Conc. 35.3 g/dL (33.0-37.0); Mean Corpuscular Hgb 30.1 pg (27.0-31.0); Mean Corpuscular Volume 85.3 fL (80.0-94.0); Mean Platelet Volume 9.8 fL (7.4-10.4); Nucleated Red Blood Cells % 0 % (-); Platelet Count 265 10^3/uL (130-400); Red Blood Cell Count 5.25 10^6/uL (4.70-6.10); Red Cell Dist. Width 12.9 % (11.5-14.5); White Blood Cell Count 15.3 10^3/uL (4.8-10.8)
[2024-01-22 13:49] LABS: Blood Urea Nitrogen 19 mg/dl (9-20); Carbon Dioxide 20 mmol/L (22-30); Chloride 100 mmol/L (98-107); Estimated Creatinine Clearance 62 ml/min; Glucose 159 mg/dl (70-99); Magnesium 1.9 mg/dl (1.6-2.3); Sodium 137 mmol/L (135-145); eGFR > 60.00
[2024-01-22] MEDS: NORMOSOL-R/PLASMALYTE-A 1000 IV (15:13)
[2024-01-22] MEDS: TORADOL IV (15:19)
--- NOTE | 2024-01-22 15:23 | PTCARENOTE ---
Patient received from PACU in bed; Patient on 2L nasal cannula, oxygen saturation 95%; Patient alert to self, place, and time; Patient drowsy but awakens to voice and tactile stimulation; Patient denies pain at this time; Patient denies
nausea/vomiting at this time; Surgical site assessed with NEWS VIDEOGRAPHER, three laparoscopic sites open to air with glue, colostomy takedown site with ABD pads and tape with moderate amount of bloody drainage noted on dressing, right abdomen TERESA drain site
with sanguinous output; Indwelling urinary catheter with blood tinged urine; Call rojas within reach; Spouse at bedside; Patient and spouse oriented to room and unit; Bed in lowest position, wheels locked; Assessment ongoing
[2024-01-22] MEDS: TYLENOL PO ×2 (15:56→21:57)
[2024-01-22] MEDS: TORADOL 15 MG IV ×2 (17:15→23:32)
[2024-01-22] MEDS: TYLENOL 650 MG PO (23:32)
[2024-01-23] MEDS: NORMOSOL-R/PLASMALYTE-A 1000 IV ×3 (01:21→20:54)
[2024-01-23 03:45] VITALS: BP 112/78
[2024-01-23 05:14] VITALS: BMI 28.0
[2024-01-23] MEDS: TYLENOL PO ×2 (05:25→23:58)
[2024-01-23 05:38] LABS: % Basophils 0.1 % (0-2); % Immature Granulocytes 0.6 % (0-0.5); % Lymphocytes 4.4 % (20.5-51.1); % Monocytes 7.1 % (1.7-9.3); % Neutrophils 87.8 % (42.2-75.2); Absolute Immature Granulocytes 0.1 10^3/uL (0-0.05); Absolute Lymphocytes 0.6 10^3/uL (1.2-3.4); Absolute Neutrophils 11.8 10^3/uL (1.4-6.5); Hematocrit 41.8 % (39.0-52.0); Hemoglobin 14.4 g/dL (13.0-18.0); Mean Corp Hgb Conc. 34.4 g/dL (33.0-37.0); Mean Corpuscular Hgb 30.4 pg (27.0-31.0); Mean Corpuscular Volume 88.4 fL (80.0-94.0); Mean Platelet Volume 10.4 fL (7.4-10.4); Nucleated Red Blood Cells % 0 % (-); Platelet Count 257 10^3/uL (130-400); Red Blood Cell Count 4.73 10^6/uL (4.70-6.10); White Blood Cell Count 13.4 10^3/uL (4.8-10.8)
[2024-01-23 05:56] LABS: Blood Urea Nitrogen 19 mg/dl (9-20); Calcium 8.7 mg/dl (8.4-10.2); Carbon Dioxide 25 mmol/L (22-30); Chloride 100 mmol/L (98-107); Estimated Creatinine Clearance 73 ml/min; Glucose 126 mg/dl (70-99); Magnesium 2.1 mg/dl (1.6-2.3); Potassium 4.6 mmol/L (3.5-5.1); Sodium 138 mmol/L (135-145); eGFR > 60.00
[2024-01-23] MEDS: TORADOL 15 MG IV ×4 (06:24→23:57)
[2024-01-23] MEDS: TYLENOL 650 MG PO ×4 (07:29→20:39)
[2024-01-23] MEDS: ENTEREG 12 MG PO ×2 (07:29→20:39)
[2024-01-23] MEDS: NORMOSOL-R/PLASMALYTE-A IV ×2 (07:32→07:44)
--- NOTE | 2024-01-23 07:36 | W.PN.GS2 ---
Today's Communication / Plan
-
-- Clears
-- Pain control: Tylenol, Toradol, IV Dilaudid PRN
-- Bind in place as able for 1-2 weeks post-op
-- Decrease IVF
Assessment / Plan
-
Patient is a 63 yo M POD#1 s/p robotic colostomy reversal, robotic primary ventral incisional hernia repair along midline and at ostomy site
AVSS
Labs with reactive leukocytosis, Hb stable, lytes and renal function good
Recovering well. No post-operative concerns. Awaiting ROBF. Trial of clears today
-- Clears
-- Pain control: Tylenol, Toradol, IV Dilaudid PRN
-- Bind in place as able for 1-2 weeks post-op
-- Decrease IVF
-- Remove stent, maintain Guerrero
-- OOB/ambulate
Subjective Data
-
Date of Service: January 23, 2024
Pain well-controlled. No nausea or vomiting. No flatus or BM, 'feels like its coming'. Guerrero in place. Minimal induration.
Objective Data
-
Intake and Output
01/22/24 01/23/24 01/24/24
06:59 06:59 06:59
Intake Total 200 / 200
Output Total 1350 / 1350
Balance -1150 / -1150
Intake:
IV fluids (Total) 200 / 200
Normosol 200 / 200
Output:
Drain Output (Total) 150 / 150
Right Saud-Dash A 150 / 150
Urine, Guerrero 1200 / 1200
Vital Signs
Temp Pulse Resp BP Pulse Ox
98.5 F 91 16 112/78 95
01/23/24 03:45 01/23/24 03:45 01/23/24 03:45 01/23/24 03:45 01/23/24 03:45
Lab Results
01/23/24 04:59
01/23/24 04:59
Calcium 8.7 mg/dl (8.4-10.2) 01/23/24 04:59
Magnesium 2.1 mg/dl (1.6-2.3) 01/23/24 04:59
Total Bilirubin 1.2 mg/dl (0.2-1.3) 01/09/24 10:27
AST 29 U/L (17-59) 01/09/24 10:27
ALT 31 U/L (0-50) 01/09/24 10:27
Alkaline Phosphatase 55 U/L (38-126) 01/09/24 10:27
Total Protein 8.1 g/dl (6.3-8.2) 01/09/24 10:27
Albumin 4.8 g/dl (3.5-5.0) 01/09/24 10:27
Physical Exam
-
Gen: NAD
Abd: soft, minimal tenderness, ND, non-peritoneal, dressings c/d/i - no erythema, ecchymosis or drainage, binder in place, TERESA serosang
: Guerrero with clear urine in tubing, mild old blood in bag
[2024-01-23 08:55] VITALS: BP 121/77
--- NOTE | 2024-01-23 10:56 | CM ---
Reviewed the chart notes and spoke with the patient at the bedside. The patient resides with his spouse in a split level home with three steps to enter. The patient has had [facility] in the past, but no SNF. No DME. The patient confirmed his
pharmacy of choice is the [facility] [address] [facility]. CM continues to be available to patient/family and is monitoring medical plan for needs at discharge.
Plan: Discharge to home when medically stable. No needs anticipated.
[2024-01-23 12:26] VITALS: BP 134/86
--- NOTE | 2024-01-23 12:27 | W.PN.CRS1 ---
Today's Communication / Plan
-
Lovenox
Clears
Guerrero and stent removed
Assessment/Plan
-
POD#1 1) robotic colostomy takedown 2) flexible sigmoidoscopy
-WBC 13.4, as expected postop. Vitals normal.
-Out of bed as tolerated
-Stent and Guerrero removed at bedside
-Okay to shower
-Lovenox tonight for DVT prophylaxis
-Start on a clear liquid diet await bowel function
-OR pathology pending
-TERESA drain to be removed prior to discharge
Subjective Data
Procedure
1) robotic colostomy takedown 2) flexible sigmoidoscopy
Subjective Data
Date of Service: January 23, 2024
Patient states he feels well. His pain is controlled. He is no nausea or vomiting. He is hungry. He has not had any bowel movements or flatus yet.
Objective Data
-
Vital Signs
Temp Pulse Resp BP Pulse Ox
97.9 F 70 18 134/86 100
01/23/24 12:26 01/23/24 12:26 01/23/24 12:26 01/23/24 12:26 01/23/24 12:26
Intake & Output
01/22/24 01/23/24 01/24/24
06:59 06:59 06:59
Intake Total 200 / 200 300 / 300
Output Total 1350 / 1350 675 / 675
Balance -1150 / -1150 -375 / -375
Intake:
Oral fluids 300 / 300
IV fluids (Total) 200 / 200
Normosol 200 / 200
Output:
Drain Output (Total) 150 / 150
Right Saud-Dash A 150 / 150
Urine, Guerrero 1200 / 1200 525 / 525
Urine, Voided 150 / 150
Lab Results
01/23/24 04:59
01/23/24 04:59
Physical Exam
-
General: No Acute Distress and AOx3
Abdomen: Soft, Non Distended and Non Tender
Skin: Warm and Dry
Incision: Clear, Dry, Intact
[2024-01-23 16:17] VITALS: BP 148/95
[2024-01-23] MEDS: LOVENOX 40 MG SC (17:21)
[2024-01-23 23:32] VITALS: BP 141/93
[2024-01-24] MEDS: TYLENOL PO ×2 (00:02→04:48)
[2024-01-24] MEDS: TORADOL 15 MG IV ×2 (05:45→12:05)
[2024-01-24 06:00] VITALS: BMI 28.3
[2024-01-24 07:35] VITALS: BP 134/89
--- NOTE | 2024-01-24 08:35 | W.PN.GS2 ---
Today's Communication / Plan
-
Advance diet
Assessment / Plan
-
Patient is a 63 yo M POD#2 s/p robotic colostomy reversal, robotic primary ventral incisional hernia repair along midline and at ostomy site
AVSS
Tolerating FLD, +bowel activity
Recovering well. No post-operative concerns.
-- Advance to LRD
-- Pain control: Tylenol, Toradol, oxycodone PRN
-- Bind in place as able for 1-2 weeks post-op
-- D/C IVF
-- Successful voiding trial
-- Anticipate removal of Teresa prior to d/c
-- OOB/ambulate
-- SCDs and lovenox for vte ppx
tentative d/c later today vs tomorrow pending diet tolerance
Subjective Data
-
Date of Service: January 24, 2024
Patient seen and examined at bedside with Dr. Jasmine. Notes he is passing flatus and loose stools. Denies n/v. Minimal post operative discomfort. voiding without difficulty
Objective Data
-
Intake and Output
01/23/24 01/24/24 01/25/24
06:59 06:59 06:59
Intake Total 200 / 200 4000 / 4000
Output Total 1350 / 1350 1110 / 1110
Balance -1150 / -1150 2890 / 2890
Intake:
Oral fluids 1950 / 1950
IV fluids (Total) 200 / 200 2049 / 2049
Normosol 200 / 200
Output:
Drain Output (Total) 150 / 150 60 / 60
Right Saud-Dash A 150 / 150 60 / 60
Urine, Guerrero 1200 / 1200 525 / 525
Urine, Voided 525 / 525
Other:
Number of approximated MODERATE 2
amounts of urine
Number of approximated LARGE 1
amounts of urine
Vital Signs
Temp Pulse Resp BP Pulse Ox
97.8 F 75 16 134/89 98
01/24/24 07:35 01/24/24 07:35 01/24/24 07:35 01/24/24 07:35 01/24/24 07:35
Lab Results
01/23/24 04:59
01/23/24 04:59
Calcium 8.7 mg/dl (8.4-10.2) 01/23/24 04:59
Magnesium 2.1 mg/dl (1.6-2.3) 01/23/24 04:59
Total Bilirubin 1.2 mg/dl (0.2-1.3) 01/09/24 10:27
AST 29 U/L (17-59) 01/09/24 10:27
ALT 31 U/L (0-50) 01/09/24 10:27
Alkaline Phosphatase 55 U/L (38-126) 01/09/24 10:27
Total Protein 8.1 g/dl (6.3-8.2) 01/09/24 10:27
Albumin 4.8 g/dl (3.5-5.0) 01/09/24 10:27
Physical Exam
-
Gen: NAD
Abd: soft, minimal tenderness, ND, non-peritoneal, dressings c/d/i (changed) - no erythema, ecchymosis or drainage, binder in place, TERESA serosang
[2024-01-24] MEDS: TYLENOL 650 MG PO ×3 (08:39→15:54)
[2024-01-24] MEDS: ENTEREG 12 MG PO (08:39)
--- NOTE | 2024-01-24 15:15 | CM ---
Pt for discharge today
Offered VN - declined
Has ride home with family member
Plan - home no needs
--- NOTE | 2024-01-24 15:32 | W.DCSUMMARY ---
Discharge Summary
Discharge Data
Date of Admission: 01/22/24
Date of Discharge: 01/24/24
-
Pending Results: No
Hospital Course
Mr Mandel is a 63 yo male with a history of diverticulitis and prior end colostomy creation presenting for colostomy reversal and ventral incisional hernia repair which was done with robotic assistance and tolerated well. Post operatively, he had
good return of bowel function with toleration of solid diet with passage of flatus and stool prior to discharge. Pain was minimal post operatively. TERESA drain was left in place in the immediate post operative period and was removed prior to discharge.
Outpatient follow up planned in the coming weeks for removal of latoya over the skin of the prior ostomy site.
Discharge Plan
-
Patient Disposition: Home (Routine Discharge)
Discharge Diagnosis/Procedures: robotic colostomy takedown with ventral incisional hernia repair x2
Condition: Good
Diet: Low Residue
Activity: No strenuous activity
Additional Activity: No heavy lifting (>20 lbs) or strenuous activities for 6 weeks postoperatively. Use abdominal binder for the first 2 weeks to reduce postoperative swelling and stabilize muscles. Use as needed okay to take off at nighttime.
Driving Restrictions: Wait until not sore and off narcotics
Bathing Restrictions: OK to Shower
Wound Care: Ok to shower and wash your incisions gently with soap and water. Cover your larger incision and prior drain site with clean, dry gauze and change daily. Corning will be removed in the office during your follow up appointment with your
surgeon
Instructions: Low Fiber Diet
Referrals:
Tramaine Yi MD [Active] - in two weeks
Lorie Carpio CRNP [Family Provider] -
Dima Feng MD [Active] -
Additional Discharge Medication Instructions: Allow glue to naturally fall off. Do not pick at incisions. Tylenol or ibuprofen as needed for pain management.
Prescriptions:
New
acetaminophen 325 mg tablet
650 mg PO Q4HPRN PRN (Reason: mild pain) Qty: 1 0RF
tramadol 50 mg tablet
25 - 50 mg PO Q6HPRN PRN (Reason: severe pain/breakthrough pain) Qty: 15 0RF
Continued
multivitamin Tablet
1 tab PO DAILY
ibuprofen 200 mg Tablet
400 mg PO Q6H PRN (Reason: pain)
colchicine 0.6 mg Tablet
0.6 mg PO DAILY PRN (Reason: gout)
guaifenesin [Mucinex] 600 mg Tablet Extended Release 12hr
1,200 mg PO Q12H PRN (Reason: congestion)
Discontinued
metronidazole 500 mg Tablet
500 mg PO DIRECTED
neomycin 500 mg Tablet
1 g PO DIRECTED
Sutab 1.479-0.188- 0.225 gram Tablet
0 tab PO DIRECTED
Discharge Orders:
Discharge Patient (As Directed); Ordered 01/24/24
Ordered By: Lizeth Guevara
Discharge Date and Time
Print Language: OCCITAN
[2024-01-24 15:45] VITALS: BP 158/99
== END 2024-01-24 17:25 | disposition home or self-care (01) | DRG 346 ==
LOC: 2 SOUTH 06:06
PROVIDERS: Physician Assistant; Surgery; ADMITTING PHYSICIAN Surgery; FAMILY PHYSICIAN Nurse Practitioner Family
PROC: 0WUF4JZ Supplement Abdominal Wall with Synthetic Substitute, Percutaneous Endoscopic Approach (ICD-10-PCS; 2024-01-22)
PROC: 0DSM4ZZ Reposition Descending Colon, Percutaneous Endoscopic Approach (ICD-10-PCS; 2024-01-22)
PROC: 8E0W4CZ Robotic Assisted Procedure of Trunk Region, Percutaneous Endoscopic Approach (ICD-10-PCS; 2024-01-22)
DX: Z43.3 Encounter for attention to colostomy (principal); K43.2 Incisional hernia without obstruction or gangrene; Z90.49 Acquired absence of other specified parts of digestive tract
CPT/HCPCS: 88304; 36415; 80048; 80053; 83036; 83735; 85025; 85027; 85610; 85730; 86850; 86900; 86901; 93005; J1335

== ENCOUNTER → 2024-09-28 11:45 | Outpatient (REF) | payer BC, SELFPAY | LOC: REG 11:45 | PROVIDERS: ATTENDING PHYSICIAN Family Medicine | DX: M25.561 Pain in right knee (principal); M25.562 Pain in left knee | CPT/HCPCS: 73564 ==

== ENCOUNTER → 2024-12-08 16:22 | Outpatient (REF) | payer BC, SELFPAY | LOC: RAD 16:22 | PROVIDERS: ATTENDING PHYSICIAN Nurse Practitioner Family | DX: R31.9 Hematuria, unspecified (principal) | CPT/HCPCS: 76770 ==

== ENCOUNTER → 2025-03-15 15:33 | Outpatient (REF) | payer BC, SELFPAY | LOC: RAD 15:33 | PROVIDERS: ATTENDING PHYSICIAN Surgery; FAMILY PHYSICIAN Internal Medicine | DX: K43.2 Incisional hernia without obstruction or gangrene (principal) | CPT/HCPCS: 74177; Q9967 ==